=== PATIENT | male | born 1975 | race African-American/Black ===

== ENCOUNTER 2020-07-27 16:14 | Outpatient (REF) | payer MEDICAID, SELFPAY | END 2020-07-27 16:15 | disposition home or self-care (01) | LOC: HO.SCI 16:14 | PROVIDERS: Visit Provider Nurse Practitioner Primary Care | DX: Z13.89 Encounter for screening for other disorder (principal) ==

== ENCOUNTER 2020-08-03 06:57 | Outpatient (REF) | payer MEDICAID, SELFPAY ==
[2020-08-03 08:50] LABS: Estimated Average Glucose 97 mg/dL
[2020-08-03 09:55] LABS: Glucose Urine UA NEG (NEG); Leukocyte Esterase Urine NEG (NEG); Nitrite Urine NEG (NEG); Specific Gravity - Urine >= 1.030 (1.005-1.025); Urine Blood NEG (NEG); Urine Ketones NEG (NEG); Urine Protein NEG (NEG-TRACE)
[2020-08-03 10:07] LABS: Appearance Urine CLEAR; Color Urine YELLOW
[2020-08-03 12:10] LABS: CT PCR NOT DETECTED (Not Detect.); NG PCR NOT DETECTED (Not Detect.)
[2020-08-06 14:56] LABS: Absolute CD3 Count 2072 cells/uL (840-3060); Absolute CD4 Count 1184 cells/uL (490-1740); Absolute CD8 Count 876 cells/uL (180-1170); Absolute Lymphocytes 2581 cells/uL (850-3900); CD4 CD8 Ratio 1.35 (0.86-5.00); Percent CD3 Cells 80 % (57-85); Percent CD4 Cells 46 % (30-61); Percent CD8 Cells 34 % (12-42)
[2020-08-07 14:01] LABS: HCV Log PCR 4.55 Log IU/mL (NOT DETECTED); HepC Viral Load 35800 IU/mL (NOT DETECTED)
[2020-08-08 14:17] LABS: HIV RNA PCR Qn Copies <20 Copies/mL; HIV RNA PCR Qn Log Copies <1.30 Log cps/mL
== END 2020-08-03 06:58 | disposition home or self-care (01) ==
LOC: HO.LAB 06:57
PROVIDERS: PCP Nurse Practitioner Primary Care; Visit Provider Nurse Practitioner Primary Care
DX: B20 Human immunodeficiency virus [HIV] disease (principal)
CPT/HCPCS: 81003; 83036; 86359; 86360; 87491; 87522; 87536; 87591; 87900; 87901

== ENCOUNTER 2020-09-21 07:47 | Outpatient (REF) | payer MEDICAID, SELFPAY ==
--- NOTE | ~2020-09-21 | US_ITS ---
EXAMINATION: US COMPLETE ABDOMEN WITH LIVER ELASTOGRAPHY CLINICAL INFORMATION: Hepatitis C. COMPARISON: None. TECHNIQUE: Real-time imaging of the abdominal viscera. Noninvasive ultrasound liver fibrosis assessment is performed using Clarice ElastPQ point quantification shear wave elastography (pSWE) with a C5-2 MHz transducer. Multiple elastography samples are obtained. FINDINGS: PANCREAS: The head and body of the pancreas is normal. Tail is not well visualized due to bowel gas. ABDOMINAL AORTA: The proximal and distal abdominal aorta are normal in caliber. The mid abdominal aorta is not well visualized. INFERIOR VENA CAVA: Visualized portions are normal. LIVER: The liver echotexture is slightly increased. The liver is upper normal in size. No focal liver lesion or evidence of cirrhosis is seen. The right lobe measures 16.5 cm in length. The left lobe measures 10.8 cm in length. Portal flow is normal/hepatopedal. Shear wave liver elastography median stiffness is 1.9 m/s (reference: normal median stiffness is 1.3 m/s or less). IQR/median stiffness to assess sampling precision is 0.13 (reference: good quality data set is IQR/median stiffness of 0.15 or less). GALLBLADDER: Normal. The gallbladder is physiologically distended without evidence of stones, sludge, polyps, wall thickening or pericholecystic fluid. COMMON BILE DUCT: Normal in caliber measuring 0.2 cm in diameter. RIGHT KIDNEY: Normal. No hydronephrosis. No renal calculi or focal parenchymal lesions. The kidney measures 10.8 cm in maximum dimension. LEFT KIDNEY: Normal. No hydronephrosis. No renal calculi or focal parenchymal lesions. The kidney measures 12 cm in maximum dimension. SPLEEN: Normal. The spleen measures 10.7 cm in maximum dimension. FREE FLUID: There is trace fluid seen adjacent to the liver under the right hemidiaphragm. US/US abdomen comp w elastography IMPRESSION: 1. Slightly echogenic liver. No focal liver lesion or evidence of cirrhosis. Trace ascites. Limited visualization of the pancreas and aorta. 2. Liver elastography: Adequate liver sampling. Liver stiffness suggests possiblecompensated advanced chronic liver disease. REFERENCE: Society of Radiologists in Ultrasound Liver Stiffness Thresholds (2020): LIVER STIFFNESS THRESHOLDS: *Liver Stiffness equal or less than 1.3 m/s: High probability of being normal. *Liver Stiffness less than 1.7 m/s: In the absence of other known clinical signs, rules out compensated advanced chronic liver disease. *Liver Stiffness 1.7-2.1 m/s: Suggestive of compensated advanced chronic liver disease but need further test for confirmation. *Liver Stiffness over 2.1 m/s: Rules in compensated advanced chronic liver disease. *Liver Stiffness over 2.4 m/s: Suggestive of clinically significant portal hypertension. QUALITY OF DATA SET: *IQR/Median value equal or less than 0.15 implies a quality data set. *IQR/Median value over 0.15 implies a poor quality data set. SIGNIFICANT CHANGE FROM PRIOR EXAM: Significant change if liver stiffness measurement is 10% or greater from prior exam. OTHER CONSIDERATIONS: The stage of liver fibrosis may be overestimated in the setting of acute hepatitis, liver inflammation, elevated liver function tests, hepatic vascular congestion, obstructive cholestasis, non-fasting state, and infiltrative diseases such as amyloidosis and lymphoma. In some patients with NAFLD, the liver stiffness thresholds for compensated advanced chronic liver disease may be lower. In causes other than viral hepatitis and NAFLD, liver stiffness thresholds are not well established.
== END 2020-09-21 07:48 | disposition home or self-care (01) ==
LOC: HO.US 07:47
PROVIDERS: Visit Provider Internal Medicine
DX: B19.20 Unspecified viral hepatitis C without hepatic coma (principal)
CPT/HCPCS: 76705; 76981

== ENCOUNTER → 2020-09-28 07:49 | Outpatient (REF) | payer MEDICAID, SELFPAY ==
--- NOTE | 2020-09-28 07:53 | CA_ITS ---
Transthoracic Echocardiogram Patient (Last, First, Middle): [place] Alston, Gender: Male Date of : 1975 Age: 45 Procedure Date: 09/28/2020 Procedure Type: Transthoracic Echocardiogram Location: OP Height: 187.96 cm Weight: 74.84 kg BSA: 2.00 m2 Heart Rate: bpm BP: 98 / 62 mmHg Senior Water Resources Engineer: DSG Referring MD: Rebeca Chase NP Corporate Relations Director: Hima Lou MD Symptoms: ABNORMAL EKG R4.31 Study Quality: Good ECG Rhythm: Sinus Conclusions: - Essentially normal study Findings Left Ventricle Normal left ventricular size, thickness, and systolic function. The visually estimated ejection fraction is between 60-65%. Diastolic function is normal for age. Right Ventricle Normal right ventricular cavity size and systolic function. Atria Both atria are normal in size. There is no evidence of interatrial shunt. Aortic Valve Normal aortic valve structure and function. There is no aortic valve stenosis. There is no aortic valve regurgitation. Mitral Valve Normal mitral valve structure and function. There is trace mitral valve regurgitation. There is no mitral valve stenosis. Pulmonic Valve The pulmonic valve is likely normal. Tricuspid Valve Normal tricuspid valve structure. There is trace tricuspid valve regurgitation. The right ventricular systolic pressure is normal. The right ventricular systolic pressure is 25 mmHg. Normal right atrial pressure. There is no evidence of pulmonary hypertension. Great Vessels All visible segments of the aorta are normal in size. The pulmonary artery was not well visualized. Venous The inferior vena cava is normal in size and collapses greater than 50% with inspiration. Pericardium/Pleural There is no evidence of pericardial effusion. Prior Study Comparison No prior study available for comparison. Measurements 2D Linear Measurements IVSd: 1.34 0.6-0.9/0.6-1.0 cm LVIDd: 5.20 3.9-5.3/4.2-5.9 cm LVIDd Index: 2.60 2.4-3.2/2.2-3.1 cm/m2 LVIDs: 3.24 2.0-3.6 cm LVPWd: 0.75 0.7-1.1 cm Ao Root: 3.00 2.1-3.5 cm LA Diam: 3.00 2.7-3.8/3.0-4.0 cm LAIDs Index: 1.50 1.5-2.3 cm/m2 LV Mass: 256.68 67-162/88-224 g LV Mass Index: 128.34 43-95/49-115 g/m2 LVOT Diam: 2.40 3.0+(-)1.3 cm 2D Systolic Function EF 4C: 59.30 >55% EF 2C: 51.40 >55% Mitral Valve MV Pk E: 0.86 MV PK A: 0.31 MV Decel Time: 151.00 E/A: 2.80 PHT: 44.00 MVA PHT: 5.00 Decel [place]: 5.70 Aortic Valve AoV Pk Ant: 1.02 AoV Pk Grad: 4.00 LVOT LVOT Pk Ant: 0.91 LVOT Mn Ant: 0.54 LVOT VTI: 0.19 LVOT Pk Grad: 3.00 LVOT Mn Grad: 1.00 LVOT Diam: 2.40 LVOT Area: 4.52 Diastolic Function MV Pk E: 0.86 MV Pk A: 0.31 E/A: 2.80 Tricuspid Valve TR Pk Ant: 2.08 TR Pk Grad: 17.00 RA Press: 8.00 RVSP: 25.00 Great Vessels Aorta Ao Root-2D: 3.00 2.0-3.7 cm Ao Asc: 3.00 2.1-3.4 cm Updated in Other Vendor System with Status of Final Hima Lou MD electronically signed on 09/28/2020 4:09:30 PM with status of Final
== END ==
LOC: HO.CARD 07:49
PROVIDERS: Visit Provider Nurse Practitioner Primary Care
DX: R94.31 Abnormal electrocardiogram [ECG] [EKG] (principal)
CPT/HCPCS: 93306

== ENCOUNTER 2020-10-19 06:06 | Outpatient (REF) | payer MEDICAID, SELFPAY ==
[2020-10-19 07:47] LABS: INTERNATIONAL NORM RATIO 1.2 (0.9-1.1); Prothrombin Time 14.3 SEC (10.8-13.0)
[2020-10-24 10:17] LABS: Hepatitis C Genotype 1a
[2020-11-03 18:12] LABS: FIB-ALT 53 U/L (9-46); FIB-Alpha-2-Macroglobulin 368 mg/dL (106-279); FIB-Apolipoprotein A1 128 mg/dL (94-176); FIB-GGT 42 U/L (3-95); FIB-Haptoglobin 138 mg/dL (43-212); FIB-Total Bilirubin 0.6 mg/dL (0.2-1.2); Liver Fibrosis Score 0.57; Liver Fibrosis Stage F2; Nec Inflam Act Grade A1-A2
== END 2020-10-19 06:07 | disposition home or self-care (01) ==
LOC: HO.LAB 06:06
PROVIDERS: Absent Provider Nurse Practitioner Primary Care; PCP Nurse Practitioner Primary Care; Visit Provider Internal Medicine
DX: B19.20 Unspecified viral hepatitis C without hepatic coma (principal)
CPT/HCPCS: 36415; 81596; 85610; 87902

== ENCOUNTER → 2020-11-15 14:59 | Outpatient (BNVA) | payer MEDICAID, SELFPAY | PROVIDERS: PCP Nurse Practitioner Primary Care; Visit Provider Surgery Vascular Surgery | DX: I73.9 Peripheral vascular disease, unspecified (principal); I83.11 Varicose veins of right lower extremity with inflammation; B19.20 Unspecified viral hepatitis C without hepatic coma; B20 Human immunodeficiency virus [HIV] disease; F11.20 Opioid dependence, uncomplicated; F17.210 Nicotine dependence, cigarettes, uncomplicated | CPT/HCPCS: 99202 ==

== ENCOUNTER 2020-12-11 07:55 | Outpatient (REF) | payer MEDICAID, SELFPAY ==
--- NOTE | ~2020-12-11 | US_ITS ---
EXAMINATION: NONINVASIVE ASSESSMENT OF THE ARTERIES OF BOTH LOWER EXTREMITIES WITH ANKLE PRESSURE MEASUREMENTS, ANKLE BRACHIAL INDICES, PVR MEASUREMENTS AND BILATERAL LOWER EXTREMITY DUPLEX. CLINICAL INFORMATION: Peripheral vascular disease. TECHNIQUE: Ankle pressure measurements, ankle brachial indices and PVR tracings were obtained of the lower extremity arterial system bilaterally. In addition, duplex Doppler techniques with wave form analysis and measurement of velocities in the common femoral, profunda femoral, superficial femoral, popliteal and tibial arteries was performed. The study was performed only at rest. COMPARISON: None FINDINGS: NONINVASIVE ASSESSMENT OF THE ARTERIES OF BOTH LOWER EXTREMITIES WITH ABIs: RIGHT LEG: Right ankle-brachial index: 1.2 PVR (ankle): Abnormal waveform. LEFT LEG: Ankle-brachial index: 1.16 PVR (ankle): Abnormal waveform BILATERAL LOWER EXTREMITY DUPLEX ULTRASOUND: RIGHT LEG: Common femoral artery: 158 cm/s, Diastolic flow reversal: Yes Profunda femoris artery: 123 cm/s, Diastolic flow reversal: No Superficial femoral artery (proximal): 105 cm/s, Diastolic flow reversal: Yes Superficial femoral artery (mid): 153 cm/s, Diastolic flow reversal: Yes Superficial femoral artery (distal): 88 cm/s, Diastolic flow reversal: Yes Popliteal artery: 64 cm/s, Diastolic flow reversal: Yes Posterior tibial artery: 70 cm/s, Diastolic flow reversal: Yes LEFT LEG: Common femoral artery: 139 cm/s, Diastolic flow reversal: Yes Profunda femoris artery: 124 cm/s, Diastolic flow reversal: Yes Superficial femoral artery (proximal): 110 cm/s, Diastolic flow reversal: Yes Superficial femoral artery (mid): 140 cm/s, Diastolic flow reversal: Yes Superficial femoral artery (distal): 79 cm/s, Diastolic flow reversal: Yes Popliteal artery: 68 cm/s, Diastolic flow reversal: Yes Posterior tibial artery: 89 cm/s, Diastolic flow reversal: Yes US/US arterial duplex LE BI IMPRESSION: RIGHT LEG: KENNEY 1.2. No hemodynamically significant arterial stenoses identified. LEFT LEG: KENNEY 1.16. No hemodynamically significant arterial stenoses identified. KENNEY Reference: - >0.97-1.25 = normal - no significant arterial disease - 0.75-0.96 = mild peripheral arterial disease - 0.5-0.74 = moderate peripheral arterial disease - <0.50 = severe peripheral arterial disease
--- NOTE | ~2020-12-11 | US_ITS ---
EXAMINATION: RIGHT and LEFT LOWER EXTREMITY VENOUS ULTRASOUND (Reflux Exam) CLINICAL INDICATION: leg pain and varicose veins. COMPARISON: None. TECHNIQUE: Color flow triplex imaging and compression Doppler was performed to evaluate both the deep and the superficial systems bilaterally. To evaluate the superficial system, the examination was performed in the upright position. Color-flow Doppler ultrasound and compression ultrasound were utilized. In addition, maneuvers were utilized to demonstrate reflux. FINDINGS: 1. DEEP VENOUS ULTRASOUND OF THE RIGHT LOWER EXTREMITY: Respiratory variation, normal compression and augmented flow are noted in the right common femoral vein as well as the right popliteal vein and there is no evidence of deep venous thrombosis at these locations. There is no evidence of reflux in the deep system in either the common femoral vein or the popliteal vein. There is no evidence of a Ellis's cyst. 2. SUPERFICIAL ULTRASOUND WITH DOPPLER OF RIGHT LOWER EXTREMITY: The right great saphenous vein at the saphenofemoral junction measures 7 mm, at the mid thigh 3 mm, [id number] 3 mm, tozhl-lju-[id number] 2 mm, at mid calf 1 mm and at the ankle measures 3 mm. There is no reflux demonstrated in the right great saphenous vein. The right small saphenous vein measures 2-4 mm and shows no reflux. There are perforators in the thigh and calf that measure between 2 and 4 mm and do not demonstrate reflux. There are varicosities in the thigh that measure 3 and 4 mm and do not demonstrate reflux. There is a varicosity in the Catheter communicates with the lesser saphenous vein demonstrates 3.1 seconds reflux. 3. DEEP VENOUS ULTRASOUND OF THE LEFT LOWER EXTREMITY: Respiratory variation, normal compression and augmented flow are noted in the left common femoral vein as well as the left popliteal vein and there is no evidence of deep venous thrombosis at these locations. There is no evidence of reflux in the deep system in either the common femoral vein or the popliteal vein. . There is no evidence of a Ellis's cyst. 4. SUPERFICIAL ULTRASOUND WITH DOPPLER OF LEFT LOWER EXTREMITY: Left great saphenous vein at the saphenofemoral junction measures 5 mm, at the mid thigh 1 mm, dtvyq-[id number] 2 mm, zwkuc-kpm-qlge 4 mm, at mid calf 3 mm and at the ankle measures 3 mm. There is a 1.9 seconds reflux in the left greater saphenous vein below the knee. There is an accessory lateral greater saphenous vein that measures 2 to 3 mm and does not demonstrate reflux. The left small saphenous vein measures 1 mm and shows no reflux. There are perforators in the calf that measure 3 mm and do not demonstrate reflux. There are varicosities in the thigh and the catheter. Varicosity at the knee measures 5 mm with 1.7 second reflux and in the proximal calf measuring 4 mm with 1 7 second reflux. US/US venous duplex LE BI IMPRESSION: 1. No evidence of reflux or thrombus in the common femoral veins or popliteal veins bilaterally. 2. No right greater saphenous vein reflux. Left greater saphenous vein reflux below the knee measuring 1.9 seconds. Reflux seen in bilateral varicosities.
== END 2020-12-11 07:56 | disposition home or self-care (01) ==
LOC: HO.US 07:55
PROVIDERS: Visit Provider Surgery Vascular Surgery
DX: I83.893 Varicose veins of bilateral lower extremities with other complications (principal); I83.11 Varicose veins of right lower extremity with inflammation; I73.9 Peripheral vascular disease, unspecified
CPT/HCPCS: 93923; 93925; 93970

== ENCOUNTER → 2020-12-13 15:08 | Outpatient (BNVA) | payer MEDICAID, SELFPAY | PROVIDERS: PCP Nurse Practitioner Primary Care; Referring Provider Nurse Practitioner Primary Care; Visit Provider Surgery Vascular Surgery | DX: I73.9 Peripheral vascular disease, unspecified (principal) | CPT/HCPCS: 99212 ==

== ENCOUNTER 2020-12-20 08:05 | Outpatient (REF) | payer MEDICAID, SELFPAY ==
[2020-12-21 12:36] LABS: Absolute CD3 Count 1956 cells/uL (840-3060); Absolute CD4 Count 993 cells/uL (490-1740); Absolute CD8 Count 942 cells/uL (180-1170); Absolute Lymphocytes 2659 cells/uL (850-3900); CD4 CD8 Ratio 1.05 (0.86-5.00); Percent CD3 Cells 74 % (57-85); Percent CD4 Cells 37 % (30-61); Percent CD8 Cells 35 % (12-42)
[2020-12-22 11:22] LABS: HIV RNA PCR Qn Copies <20 NOT DETECTED copies/mL (NOT DETECTED); HIV RNA PCR Qn Log Copies <1.30 NOT DETECTED (NOT DETECTED)
== END 2020-12-20 08:06 | disposition home or self-care (01) ==
LOC: HO.LAB 08:05
PROVIDERS: Absent Provider Nurse Practitioner Primary Care; PCP Nurse Practitioner Primary Care; Visit Provider Internal Medicine
DX: B20 Human immunodeficiency virus [HIV] disease (principal)
CPT/HCPCS: 36415; 86359; 86360; 87536

== ENCOUNTER 2021-03-08 08:18 | Outpatient (REF) | payer MEDICAID, SELFPAY ==
[2021-03-08 08:30] LABS: MANUAL DIFF FLAG NO
[2021-03-08 08:51] LABS: Basophils Percent Auto 0.2 % (0-2); Eosinophils Absolute Auto 0.1 X10*3/uL (0.0-0.4); Eosinophils Percent Auto 2.5 % (0-4); Hematocrit 35.9 % (42-52); Hemoglobin 12.2 g/dl (14.0-18.0); Imm Gran Abs Auto 0.01 X10*3/uL (0.00-0.03); Imm Gran Pct Auto 0.2 % (0.0-0.4); Lymphocytes Absolute Auto 3.2 X10*3/uL (1.2-4.9); Lymphocytes Percent Auto 56.6 % (20-40); Mean Corpuscular Volume 91.3 fL (80-98); Mean Platelet Volume 10.1 fL (9.4-12.4); Monocytes Absolute Auto 0.5 X10*3/uL (0.1-1.2); Monocytes Percent Auto 8.3 % (2-11); Neutrophils Absolute Auto 1.8 X10*3/uL (2.0-8.3); Neutrophils Percent Auto 32.2 % (45-73); Platelet Count 127 X10*3/uL (160-400); Red Blood Count 3.93 X10*6/uL (4.60-5.80); White Blood Count 5.6 X10*3/uL (4.8-10.8)
[2021-03-08 09:26] LABS: Alanine Aminotransferase 57 U/L (0-40); Albumin Level 3.7 g/dL (3.5-5.0); Alkaline Phosphatase 90 U/L (39-117); Anion Gap 9 (12-20); Aspartate Amino Transferase 54 U/L (5-37); Bilirubin Total 0.4 mg/dL (0.0-1.0); Blood Urea Nitrogen 13 mg/dL (9-16); Calcium 8.8 mg/dL (8.4-10.2); Carbon Dioxide 29 mmol/L (22-29); Chloride 104 mmol/L (96-108); Cholesterol 101 mg/dL; Estimated Glomerular Filt Rate > 60; Glucose Random 87 mg/dL (60-115); HDL Cholesterol 39 mg/dL; LDL Cholesterol Calculated 54 mg/dl; Potassium 4.6 mmol/L (3.3-5.1); Sodium 137 mmol/L (135-145); Total Protein 8.6 g/dL (6.5-8.0); Triglycerides 44 mg/dL
[2021-03-08 09:49] LABS: Syphilis Screen Nonreactive (Nonreactive)
[2021-03-08 09:58] LABS: Appearance Urine CLEAR; Color Urine YELLOW; Glucose Urine UA NEG (NEG); Leukocyte Esterase Urine NEG (NEG); Nitrite Urine NEG (NEG); Specific Gravity - Urine >= 1.030 (1.005-1.025); Urine Blood NEG (NEG); Urine Ketones NEG (NEG); Urine Protein NEG (NEG-TRACE)
[2021-03-08 12:57] LABS: CT PCR NOT DETECTED (Not Detect.); NG PCR NOT DETECTED (Not Detect.)
[2021-03-11 13:41] LABS: TS Negative Control Passed; TS Panel A 0; TS Panel B 0; TS Positive Control Passed; TSpotTB Negative (Negative)
[2021-03-11 14:51] LABS: Absolute CD3 Count 2286 cells/uL (840-3060); Absolute CD4 Count 1401 cells/uL (490-1740); Absolute CD8 Count 896 cells/uL (180-1170); Absolute Lymphocytes 3159 cells/uL (850-3900); CD4 CD8 Ratio 1.56 (0.86-5.00); Percent CD3 Cells 72 % (57-85); Percent CD4 Cells 44 % (30-61); Percent CD8 Cells 28 % (12-42)
[2021-03-12 15:46] LABS: HIV RNA PCR Qn Copies <20 NOT DETECTED copies/mL (NOT DETECTED); HIV RNA PCR Qn Log Copies <1.30 NOT DETECTED (NOT DETECTED)
== END 2021-03-08 08:19 | disposition home or self-care (01) ==
LOC: HO.LAB 08:18
PROVIDERS: Absent Provider Nurse Practitioner Primary Care; PCP Nurse Practitioner Primary Care; Visit Provider Internal Medicine
DX: B20 Human immunodeficiency virus [HIV] disease (principal)
CPT/HCPCS: 80053; 80061; 81003; 85025; 86359; 86360; 86481; 86780; 87491; 87536; 87591

== ENCOUNTER 2021-04-12 06:40 | Outpatient (REF) | payer MEDICAID, SELFPAY ==
[2021-04-12 08:07] LABS: Hepatitis A Antibody IgG REACTIVE (Nonreactive); ~Hepatitis A Antibody IgG 10.71 S/CO (0.00-0.99)
[2021-04-18 15:32] LABS: HCV Log PCR 5.15 Log IU/mL (NOT DETECTED); HepC Viral Load 141000 IU/mL (NOT DETECTED)
== END 2021-04-12 06:41 | disposition home or self-care (01) ==
LOC: HO.LAB 06:40
PROVIDERS: Absent Provider Nurse Practitioner Primary Care; PCP Nurse Practitioner Primary Care; Visit Provider Internal Medicine
DX: B19.20 Unspecified viral hepatitis C without hepatic coma (principal)
CPT/HCPCS: 36415; 86708; 87522

== ENCOUNTER 2021-07-26 11:49 | Outpatient (REF) | payer MEDICAID, SELFPAY ==
[2021-07-26 12:29] LABS: MANUAL DIFF FLAG NO
[2021-07-26 13:10] LABS: Basophils Percent Auto 0.3 % (0-2); Eosinophils Absolute Auto 0.1 X10*3/uL (0.0-0.4); Eosinophils Percent Auto 1.1 % (0-4); Hematocrit 39.4 % (42.0-52.0); Hemoglobin 13.1 g/dl (14.0-18.0); Imm Gran Abs Auto 0.02 X10*3/uL (0.00-0.03); Imm Gran Pct Auto 0.3 % (0.0-0.4); Lymphocytes Absolute Auto 2.6 X10*3/uL (1.2-4.9); Lymphocytes Percent Auto 40.6 % (20-40); Mean Corpuscular HGB Conc 33.2 g/dl (31.0-36.0); Mean Corpuscular Hemoglobin 31.2 pg (27.0-33.0); Mean Corpuscular Volume 93.8 fL (80.0-98.0); Mean Platelet Volume 9.9 fL (9.4-12.4); Monocytes Absolute Auto 0.4 X10*3/uL (0.1-1.2); Monocytes Percent Auto 6.7 % (2-11); Neutrophils Absolute Auto 3.3 x10*3/uL (2.0-8.3); Platelet Count 148 X10*3/uL (160-400); White Blood Count 6.4 X10*3/uL (4.8-10.8)
[2021-07-26 13:48] LABS: Alanine Aminotransferase 12 U/L (0-40); Alkaline Phosphatase 83 U/L (39-117); Aspartate Amino Transferase 23 U/L (5-37); Bilirubin Direct 0.3 mg/dL (0.0-0.5); Bilirubin Total 0.9 mg/dL (0.0-1.0); Total Protein 8.5 g/dL (6.5-8.0)
[2021-07-28 13:22] LABS: HCV Log PCR <1.18 NOT DETECTED Log IU/mL (NOT DETECTED); HepC Viral Load <15 NOT DETECTED IU/mL (NOT DETECTED)
[2021-07-29 11:42] LABS: Absolute CD3 Count 1876 cells/uL (840-3060); Absolute CD4 Count 1097 cells/uL (490-1740); Absolute CD8 Count 778 cells/uL (180-1170); Absolute Lymphocytes 2667 cells/uL (850-3900); CD4 CD8 Ratio 1.41 (0.86-5.00); Percent CD3 Cells 70 % (57-85); Percent CD4 Cells 41 % (30-61); Percent CD8 Cells 29 % (12-42)
[2021-07-30 20:31] LABS: HIV RNA PCR Qn Copies NOT DETECTED copies/mL (NOT DETECTED); HIV RNA PCR Qn Log Copies NOT DETECTED (NOT DETECTED)
== END 2021-07-26 11:50 | disposition home or self-care (01) ==
LOC: HO.LAB 11:49
PROVIDERS: Absent Provider Nurse Practitioner Primary Care; PCP Nurse Practitioner Primary Care; Visit Provider Internal Medicine
DX: B19.20 Unspecified viral hepatitis C without hepatic coma (principal); B20 Human immunodeficiency virus [HIV] disease
CPT/HCPCS: 36415; 80076; 85025; 86359; 86360; 87522; 87536

== ENCOUNTER 2021-12-04 08:18 | Outpatient (REF) | payer MEDICAID, SELFPAY ==
[2021-12-04 10:13] LABS: Alanine Aminotransferase 11 U/L (0-40); Albumin Level 3.9 g/dL (3.5-5.0); Alkaline Phosphatase 96 U/L (39-117); Aspartate Amino Transferase 21 U/L (5-37); Bilirubin Direct 0.2 mg/dL (0.0-0.5); Bilirubin Total 0.4 mg/dL (0.0-1.0); Total Protein 7.9 g/dL (6.5-8.0)
[2021-12-08 18:06] LABS: HCV Log PCR <1.18 NOT DETECTED Log IU/mL (NOT DETECTED); HepC Viral Load <15 NOT DETECTED IU/mL (NOT DETECTED)
== END 2021-12-04 08:19 | disposition home or self-care (01) ==
LOC: HO.LAB 08:18
PROVIDERS: PCP Nurse Practitioner Primary Care; Visit Provider Internal Medicine
DX: B19.20 Unspecified viral hepatitis C without hepatic coma (principal)
CPT/HCPCS: 36415; 80076; 87522

== ENCOUNTER 2022-03-05 | Outpatient (REF) | payer MEDICAID, SELFPAY | END 2022-03-05 00:01 | disposition home or self-care (01) | LOC: HO.HOSX | PROVIDERS: Visit Provider Physician Assistant | DX: Z13.89 Encounter for screening for other disorder (principal) ==

== ENCOUNTER 2022-03-21 11:30 | Outpatient (REF) | payer MEDICAID, SELFPAY ==
[2022-03-21 12:21] LABS: Appearance Urine Clear; Color Urine Yellow; Glucose Urine UA Negative (Negative); Leukocyte Esterase Urine Negative (Negative); Nitrite Urine Negative (Negative); PH 5.5 (5.0-9.0); Specific Gravity - Urine 1.025 (1.005-1.025); Urine Blood Negative (Negative); Urine Ketones Negative (Negative); Urine Protein Negative (Neg-Trace)
[2022-03-21 12:22] LABS: Basophils Percent Auto 0.3 % (0-2); Eosinophils Absolute Auto 0.1 X10*3/uL (0.0-0.4); Eosinophils Percent Auto 1.9 % (0-4); Hemoglobin 14.1 g/dl (14.0-18.0); Imm Gran Abs Auto 0.01 X10*3/uL (0.00-0.03); Imm Gran Pct Auto 0.1 % (0.0-0.4); Lymphocytes Percent Auto 39.4 % (20-40); MANUAL DIFF FLAG SCAN; Mean Corpuscular HGB Conc 33.6 g/dl (31.0-36.0); Mean Corpuscular Volume 92.3 fL (80.0-98.0); Monocytes Absolute Auto 0.5 X10*3/uL (0.1-1.2); Monocytes Percent Auto 6.8 % (2-11); Neutrophils Absolute Auto 3.9 x10*3/uL (2.0-8.3); Neutrophils Percent Auto 51.5 % (45-73); PLT CLUMP 1; Red Blood Count 4.55 X10*6/uL (4.60-5.80); Red Cell Distribution Width 12.8 % (11.0-16.0); SCAN SMEAR FLAG 1
[2022-03-21 12:23] LABS: Bacteria Urine None Seen (None Seen); Hyaline Casts Urine 0-2 /LPF (0-2); RBC Urine 0-2 /HPF (0-2); Squamous Epithelial Cell Urine 0-2 /HPF (0-2); WBC Urine 0-5 /HPF (0-5)
[2022-03-21 12:38] LABS: White Blood Count 7.5 X10*3/uL (4.8-10.8)
[2022-03-21 12:39] LABS: SLIDE REVIEW VERIFIED
[2022-03-21 13:01] LABS: Alanine Aminotransferase 12 U/L (0-40); Albumin Level 4.3 g/dL (3.5-5.0); Alkaline Phosphatase 87 U/L (39-117); Anion Gap 15 (12-20); Aspartate Amino Transferase 23 U/L (5-37); Bilirubin Total 0.6 mg/dL (0.0-1.0); Blood Urea Nitrogen 14 mg/dL (9-16); Calcium 9.3 mg/dL (8.4-10.2); Carbon Dioxide 24 mmol/L (22-29); Chloride 104 mmol/L (96-108); Cholesterol 146 mg/dL; Estimated Glomerular Filt Rate > 60; Glucose Random 97 mg/dL (60-115); HDL Cholesterol 51 mg/dL; LDL Cholesterol Calculated 86 mg/dl; Potassium 4.6 mmol/L (3.3-5.1); Sodium 138 mmol/L (135-145); Total Protein 8.5 g/dL (6.5-8.0); Triglycerides 45 mg/dL
[2022-03-21 13:11] LABS: Syphilis Screen Nonreactive (Nonreactive)
[2022-03-24 13:17] LABS: Absolute CD3 Count 1966 cells/uL (840-3060); Absolute CD4 Count 1186 cells/uL (490-1740); Absolute CD8 Count 790 cells/uL (180-1170); Absolute Lymphocytes 2696 cells/uL (850-3900); Percent CD3 Cells 73 % (57-85); Percent CD4 Cells 44 % (30-61); Percent CD8 Cells 29 % (12-42)
[2022-03-25 20:27] LABS: HIV RNA PCR Qn Copies NOT DETECTED copies/mL (NOT DETECTED); HIV RNA PCR Qn Log Copies NOT DETECTED (NOT DETECTED)
== END 2022-03-21 11:31 | disposition home or self-care (01) ==
LOC: HO.LAB 11:30
PROVIDERS: Visit Provider Nurse Practitioner Primary Care
DX: B20 Human immunodeficiency virus [HIV] disease (principal)
CPT/HCPCS: 36415; 80053; 80061; 81001; 85025; 86359; 86360; 86780; 87536

== ENCOUNTER 2022-03-24 11:03 | Outpatient (REF) | payer MEDICAID, SELFPAY ==
--- NOTE | ~2022-03-24 | XR_ITS ---
EXAMINATION: XR HAND, RIGHT CLINICAL INFORMATION: Pain right and COMPARISON: None TECHNIQUE: PA, lateral, and oblique views of the right hand. FINDINGS: The bones and soft tissues are normal. No fracture. Alignment is anatomic. Joint spaces are maintained. No erosions or soft tissue calcifications. XR/XR hand RT min 3V IMPRESSION: Unremarkable right hand exam.
[2022-03-26 15:57] LABS: TS Negative Control Passed; TS Panel A 0; TS Panel B 0; TS Positive Control Passed; TSpotTB Negative (Negative)
== END 2022-03-24 11:04 | disposition home or self-care (01) ==
LOC: HO.LAB 11:03
PROVIDERS: Internal Medicine; Absent Provider Nurse Practitioner Primary Care; Visit Provider Physician Assistant
DX: M79.641 Pain in right hand (principal); B20 Human immunodeficiency virus [HIV] disease
CPT/HCPCS: 36415; 73130; 86481

== ENCOUNTER 2022-07-02 08:28 | Outpatient (REF) | payer MEDICAID, SELFPAY ==
--- NOTE | ~2022-07-02 | XR_ITS ---
EXAMINATION: XR LUMBOSACRAL SPINE CLINICAL INFORMATION: Low back pain COMPARISON: None TECHNIQUE: Three views of the lumbosacral spine. FINDINGS: Bone alignment is normal. No fracture or dislocation. Mild disc space narrowing at L4-L5 and L5-S1. Lower lumbar spine facet arthritis and spondylosis. XR/XR lumbar spine 2-3V IMPRESSION: Degenerative changes.
== END 2022-07-02 08:29 | disposition home or self-care (01) ==
LOC: HO.XRAY 08:28
PROVIDERS: PCP Family Medicine; Visit Provider Emergency Medicine
DX: M54.50 Low back pain, unspecified (principal); M79.605 Pain in left leg
CPT/HCPCS: 72100

== ENCOUNTER 2022-10-23 12:35 | Outpatient (REF) | payer MEDICAID, SELFPAY ==
[2022-10-23 13:01] LABS: MANUAL DIFF FLAG NO
[2022-10-23 14:18] LABS: Basophils Percent Auto 0.5 % (0-2); Eosinophils Absolute Auto 0.2 X10*3/uL (0.0-0.4); Eosinophils Percent Auto 3.5 % (0-4); Hematocrit 42.9 % (42.0-52.0); Hemoglobin 14.2 g/dl (14.0-18.0); Imm Gran Abs Auto 0.01 X10*3/uL (0.00-0.03); Imm Gran Pct Auto 0.2 % (0.0-0.4); Lymphocytes Absolute Auto 2.6 X10*3/uL (1.2-4.9); Lymphocytes Percent Auto 39.5 % (20-40); Mean Corpuscular HGB Conc 33.1 g/dl (31.0-36.0); Mean Corpuscular Hemoglobin 30.9 pg (27.0-33.0); Mean Corpuscular Volume 93.3 fL (80.0-98.0); Monocytes Absolute Auto 0.5 X10*3/uL (0.1-1.2); Neutrophils Absolute Auto 3.3 x10*3/uL (2.0-8.3); Neutrophils Percent Auto 49.3 % (45-73); Platelet Count 186 X10*3/uL (160-400); White Blood Count 6.6 X10*3/uL (4.8-10.8)
[2022-10-23 14:51] LABS: Alanine Aminotransferase 15 U/L (0-40); Albumin Level 3.9 g/dL (3.5-5.0); Alkaline Phosphatase 86 U/L (39-117); Anion Gap 13 (12-20); Aspartate Amino Transferase 21 U/L (5-37); Bilirubin Total 0.7 mg/dL (0.0-1.0); Blood Urea Nitrogen 8 mg/dL (9-16); Calcium 9.7 mg/dL (8.4-10.2); Carbon Dioxide 29 mmol/L (22-29); Chloride 104 mmol/L (96-108); Cholesterol 155 mg/dL; Estimated Glomerular Filt Rate > 60; Glucose Random 96 mg/dL (60-115); HDL Cholesterol 61 mg/dL; LDL Cholesterol Calculated 85 mg/dl; Potassium 4.8 mmol/L (3.3-5.1); Sodium 141 mmol/L (135-145); Triglycerides 49 mg/dL
[2022-10-24 11:09] LABS: Absolute CD3 Count 1750 cells/uL (840-3060); Absolute CD4 Count 1009 cells/uL (490-1740); Absolute CD8 Count 738 cells/uL (180-1170); Absolute Lymphocytes 2390 cells/uL (850-3900); CD4 CD8 Ratio 1.37 (0.86-5.00); Percent CD3 Cells 73 % (57-85); Percent CD4 Cells 42 % (30-61); Percent CD8 Cells 31 % (12-42)
[2022-10-25 10:00] LABS: LDL Cholesterol Direct 79 mg/dL (<100)
[2022-10-27 13:59] LABS: HCV Log PCR <1.18 NOT DETECTED Log IU/mL (NOT DETECTED); HepC Viral Load <15 NOT DETECTED IU/mL (NOT DETECTED)
[2022-10-28 14:04] LABS: HIV RNA PCR Qn Copies 30 copies/mL (NOT DETECTED); HIV RNA PCR Qn Log Copies 1.48 (NOT DETECTED)
== END 2022-10-23 12:36 | disposition home or self-care (01) ==
LOC: HO.LAB 12:35
PROVIDERS: Absent Provider Nurse Practitioner Primary Care; PCP Nurse Practitioner Primary Care; Visit Provider Internal Medicine
DX: B20 Human immunodeficiency virus [HIV] disease (principal)
CPT/HCPCS: 36415; 80053; 80061; 83721; 85025; 86359; 86360; 87522; 87536

== ENCOUNTER 2022-10-28 12:31 | Emergency (ER) | payer MEDICAID, SELFPAY ==
[2022-10-28 12:58] VITALS: BP 105/66; PULSE 79; RESP 18; TEMP 36.4; O2SAT 97; BMI 21.9
--- NOTE | 2022-10-28 13:02 | ED.GENADULT ---
HPI - General Adult General Chief complaint: Back Pain/Injury Stated complaint: lower back pain Time Seen by Provider: 10/28/22 13:01 Source: patient, family, RN notes reviewed and old records reviewed Mode of arrival: ambulatory Limitations: no limitations History of Present Illness HPI narrative: 47-year-old male presents for evaluation of lower back pain. He reports that he has a history of sciatica He has had ongoing lower back pain for last 2 months. His pain got much worse last night. His pain is 10/10 and does not radiate. He is in the process of waiting for an MRI as an outpatient from his chiropractor Denies any recent injury Denies any weakness, on or bowel incontinence Related Data Home Medications Medication Instructions Recorded Confirmed abacavir 600 mg-dolutegravir 50 1 tab PO DAILY 11/15/20 mg-lamivudine 300 mg tablet (Triumeq) buprenorphine 12 mg-naloxone 3 mg 2 film buccal DAILY 11/15/20 sublingual film (Suboxone) emollient combination no.114 appl topical 11/15/20 (Eucerin Advanced Repair topical cream) famotidine 20 mg tablet 20 mg PO BID 11/15/20 gabapentin 300 mg capsule 300 mg PO QID 11/15/20 multivitamin 1 tab PO DAILY 11/15/20 Previous Rx's Medication Instructions Recorded dexamethasone 4 mg tablet 4 mg PO BID #6 tabs 10/28/22 methocarbamol 500 mg tablet 500 mg PO TID PRN muscle pain #15 10/28/22 tabs tramadol 50 mg tablet 50 mg PO Q6H PRN severe pain 10/28/22 (scale score 7-10) #12 tabs Allergies Allergy/AdvReac Type Severity Reaction Status Date / Time lodine Allergy Unknown Uncoded 10/28/22 13:00 Review of Systems Constitutional: Constitutional: Reports as per HPI, Denies chills, Denies fatigue and Denies fever(s) Cardiovascular: Cardiovascular: Denies chest pain and Denies dyspnea Respiratory: Respiratory: Denies cough and Denies dyspnea Genitourinary: Genitourinary: Denies difficulty urinating and Denies dysuria Musculoskeletal: Musculoskeletal: Reports back pain Neurologic: Denies focal weakness Endocrine: Endocrine: Denies fatigue [facility] Past Medical History Medical History Hepatitis C HIV (human immunodeficiency virus infection) Opioid dependence Social History Social History Patient Tobacco Use Status: Current everyday Tobacco user Tobacco use type: Cigarette Cigarette Packs Per Day: 0.5 Physical Exam ED Vital Signs: Vital Signs - 24 hr 10/28/22 12:58 Temperature 97.6 F Pulse Rate 79 Respiratory Rate 18 Blood Pressure 105/66 Pulse Oximetry 97 Oxygen Delivery Method Room Air BMI result Body Mass Index 21.9 Const General: healthy appearing, comfortable, no acute distress, alert and awake Nutritional Appearance: well nourished Orientation/consciousness: patient oriented x3 HENMT Head: Yes normocephalic and Yes atraumatic Eyes Eyelids: Yes eyelids normal Conjunctivae: conjunctivae normal Sclerae: sclerae normal Corneas: corneas normal Pupils: Equal, round and reactive pupils present EOM: EOMs intact bilaterally Neck Neck: Yes full ROM Resp Effort & Inspection: normal respiratory effort, able to speak in complete sentences, audible wheezes and not labored Back/Spine/Pelvis Other: Patient has vague tenderness the lumbar paraspinous region, no vertebral tenderness, no step-off deformities. Straight leg raise negative bilateral Skin General skin exam: no rashes or lesions noted and elasticity normal Neuro General: patient oriented x3 Cranial nerves: Yes CN's II-XII intact bilaterally, Yes Equal, round and reactive pupils present and Yes Bilaterally intact EOM present Cognition (Neuro): normal cognition Extrem Other: Moving all extremities well without any obvious deformities Medical Decision Making Medical Decision Making MDM Narrative: Patient has acute on chronic lower back pain. No specific injury, no warning signs for chronic venous syndrome, no fever or IV drug abuse to suggest infectious process. Will treat as sciatica. He will follow up for his outpatient MRI Differential Diagnosis Acute on chronic lower back pain Radiculopathy Sciatica Disc herniation Discharge Plan Discharge Clinical Impression: Sciatica Patient Disposition: Home, Self-Care Instructions: Sciatica (ED) Additional Instructions: Use ibuprofen Tylenol as needed for pain. You may use tramadol for more severe breakthrough pain. This may make you sleepy, did not drink alcohol or drive after taking You may use methocarbamol as needed for muscle spasms. This may make you sleepy as well, did not drink alcohol or drive after taking Take dexamethasone twice daily for the next 3 days Continue to follow-up with her outpatient providers for your MRI Prescriptions: New dexamethasone 4 mg tablet 4 mg PO BID Qty: 6 0RF methocarbamol 500 mg tablet 500 mg PO TID PRN (Reason: muscle pain) Qty: 15 0RF tramadol 50 mg tablet 50 mg PO Q6H PRN (Reason: severe pain (scale score 7-10)) Qty: 12 0RF
== END 2022-10-28 13:20 | disposition home or self-care (01) ==
PROVIDERS: Emergency Provider Emergency Medicine
DX: M54.42 Lumbago with sciatica, left side (principal); M54.41 Lumbago with sciatica, right side
CPT/HCPCS: 99282; 99283

== ENCOUNTER 2022-11-04 17:13 | Outpatient (REF) | payer MEDICAID, SELFPAY ==
--- NOTE | ~2022-11-04 | MR_ITS ---
EXAMINATION: MR LUMBAR SPINE WITHOUT AND WITH CONTRAST CLINICAL INFORMATION: severe low back pain radiating to left leg. COMPARISON: None available. TECHNIQUE: MRI of the lumbar spine was obtained using routine sequences with and without contrast. Intravenous contrast: Gadavist 7.5 mL FINDINGS: Motion degraded examination. Lumbar straightening. No significant spondylolisthesis. No suspicious marrow signal or focal osseous lesion. There is exuberant endplate marrow edema and enhancement at L5-S1. The vertebral body heights are maintained. Disc desiccation and height loss from L3-L4 to L5-S1. The conus medullaris terminates at the level of T12-L1. The distal spinal cord is normal in appearance. The cauda equina nerve roots appear normal. No definite abnormal intradural enhancement within the limitations of motion artifact No significant abnormalities of the paraspinal musculature. Limited evaluation of the intra-abdominal structures without significant abnormalities. The abdominal aorta is of normal contour and caliber. SPINAL LEVELS: L1-L2: Shallow disc bulge. Mild bilateral neural foraminal narrowing. No significant central spinal canal stenosis. L2-L3: Shallow disc bulge and mild facet arthropathy. No significant central spinal canal stenosis. Mild to moderate bilateral neural foraminal narrowing. L3-L4: Shallow disc bulge and mild facet arthropathy. No significant central spinal canal stenosis. Mild to moderate bilateral neural foraminal narrowing. L4-L5: Broad-based disc bulge and mild to moderate facet arthropathy. No significant central spinal canal stenosis. Moderate bilateral neural foraminal narrowing. No significant spinal canal stenosis. L5-S1: Mild facet arthropathy. Large left eccentric disc extrusion with peripheral enhancement effaces the subarticular zone and compresses the traversing S1 nerve roots as well as results in moderate left eccentric central spinal canal stenosis. Moderate bilateral neural foraminal narrowing. MR/MR lumbar spine wo/w con IMPRESSION: Motion degraded examination. 1. At L5-S1, there is a large left eccentric disc extrusion which effaces the subarticular zone and compresses the traversing S1 nerve roots as well as results in moderate left eccentric central spinal canal stenosis. There is exuberant endplate marrow edema and enhancement at this level. 2. Additional multilevel degenerative changes of the lumbar spine as described above without significant central spinal canal stenosis or high-grade neural foraminal narrowing.
== END 2022-11-04 17:14 | disposition home or self-care (01) ==
LOC: HO.MRI 17:13
PROVIDERS: Visit Provider Nurse Practitioner Primary Care
DX: M54.50 Low back pain, unspecified (principal); M79.605 Pain in left leg
CPT/HCPCS: 72158; A9585

== ENCOUNTER 2022-12-01 10:51 | Outpatient (AMB) | payer MEDICAID, SELFPAY ==
--- NOTE | 2022-12-01 10:56 | MHC.OFFVIS ---
Intake Vital Signs 12/01/22 10:57 Height 6 ft 1 in Weight 173 lb BMI 22.8 BP 119/70 Blood Pressure Location Lt brachial Position Sitting Respiration 14 Pulse 94 Pulse Source Pulse Oximeter Pulse Oximetry (%) 97 Oxygen Delivery Method Room Air Intake Visit Reasons: Spinal Stenosis, Lumbar/Lumbar Disc Herniation General Road Production Manager Required: Yes General Road Production Manager Name: Mary Lou [id number] Allergies lodine Allergy (Uncoded 12/01/22 10:59) Unknown Medication List - Last Reconciled 12/01/22 by Evy Brown LPN [id number] 600-50-300 mg (Triumeq) 1 tab PO DAILY buprenorphine-naloxone 12-3 mg (Suboxone) 2 film buccal DAILY dexamethasone 4 mg PO BID emollient combination no.114 (Eucerin Advanced Repair topical cream) appl topical famotidine 20 mg PO BID gabapentin 300 mg PO QID methocarbamol 500 mg PO TID PRN multivitamin 1 tab PO DAILY tramadol 50 mg PO Q6H PRN HPI Spinal Stenosis, Lumbar/Lumbar Disc Herniation HPI Details 47-year-old male presenting today as a new patient evaluation of spinal stenosis and lumbar disc herniation. A certified cook italian style food was present during the visit. The patient was referred by JANEL Palacios. He has a past medical history that includes being HIV positive, HCV-treated, OUD, now on OBAT/suboxone, PAD, and smoking, in addition to a remote history of cocaine use. He is unable to work due to weakness in his leg and severe back pain that radiates to his leg. He also has numbness in his right arm. He reports that he has a history of sciatica. He reports ongoing lower back pain for the last six months. He rates his pain at 10/10 in intensity. His pain does not radiate. He reports foot pain that also started about six months ago. He has not seen a target worker for foot pain. The patient denies any recent injury. The patient denies any weakness or bowel incontinence. 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 ON LICENSE OF [facility] Medical History (Updated 12/01/22 @ 11:07 by Rick De La Garza MD) Hepatitis C HIV (human immunodeficiency virus infection) Lumbar disc herniation Opioid dependence Spinal stenosis of lumbar region with neurogenic claudication Spinal stenosis, lumbosacral region Social History Patient Tobacco Use Status: Current everyday Tobacco user Tobacco use type: Cigarette Cigarette Packs Per Day: 0.5 Review of Systems Const All systems reviewed & are unremarkable except as noted in HPI and below Physical Exam Vital Signs: Last Vital Signs Pulse 94 12/01/22 10:57 Resp 14 12/01/22 10:57 BP 119/70 12/01/22 10:57 Pulse Ox 97 12/01/22 10:57 Oxygen Delivery Method Room Air 12/01/22 10:57 BMI result Body Mass Index 22.8 General: Appears afebrile. Alert and oriented. Mood and affect appropriate. Follows and participates in conversation appropriately. Respiratory effort is unlabored. Able to transition from sit to stand unassisted. Ambulates with bilaterally normal heel strike and toe off. Able to stand on toes and heels with difficulty. Results Reviewed Results Reviewed: 11/04/22: MR LUMBAR SPINE WITHOUT AND WITH CONTRAST FINDINGS: Lumbar straightening. No significant spondylolisthesis. No suspicious marrow signal or focal osseous lesion. There is exuberant endplate marrow edema and enhancement at L5-S1. The vertebral body heights are maintained. Disc desiccation and height loss from L3-L4 to L5-S1. The conus medullaris terminates at the level of T12-L1. The distal spinal cord is normal in appearance. The cauda equina nerve roots appear normal. No definite abnormal intradural enhancement within the limitations of motion artifact No significant abnormalities of the paraspinal musculature. Limited evaluation of the intra-abdominal structures without significant abnormalities. The abdominal aorta is of normal contour and caliber. SPINAL LEVELS: L1-L2: Shallow disc bulge. Mild bilateral neural foraminal narrowing. No significant central spinal canal stenosis. L2-L3: Shallow disc bulge and mild facet arthropathy. No significant central spinal canal stenosis. Mild to moderate bilateral neural foraminal narrowing. L3-L4: Shallow disc bulge and mild facet arthropathy. No significant central spinal canal stenosis. Mild to moderate bilateral neural foraminal narrowing. L4-L5: Broad-based disc bulge and mild to moderate facet arthropathy. No significant central spinal canal stenosis. Moderate bilateral neural foraminal narrowing. No significant spinal canal stenosis. L5-S1: Mild facet arthropathy. Large left eccentric disc extrusion with peripheral enhancement effaces the subarticular zone and compresses the traversing S1 nerve roots as well as results in moderate left eccentric central spinal canal stenosis. Moderate bilateral neural foraminal narrowing. IMPRESSION: Motion degraded examination. 1. At L5-S1, there is a large left eccentric disc extrusion which effaces the subarticular zone and compresses the traversing S1 nerve roots as well as results in moderate left eccentric central spinal canal stenosis. There is exuberant endplate marrow edema and enhancement at this level. 2. Additional multilevel degenerative changes of the lumbar spine as described above without significant central spinal canal stenosis or high-grade neural foraminal narrowing. 07/02/22: XR LUMBOSACRAL SPINE FINDINGS: Bone alignment is normal. No fracture or dislocation. Mild disc space narrowing at L4-L5 and L5-S1. Lower lumbar spine facet arthritis and spondylosis. IMPRESSION: Degenerative changes. Assessment & Plan Assessment & Plan (1) Lumbar disc herniation with radiculopathy: Code(s): M51.16 - Intervertebral disc disorders with radiculopathy, lumbar region Plan Review of MRI reveals a large paracentral disc extrusion. This is a surgical condition in setting of failure of 6 months of conservative therapy. A referral was provided to neurosurgeon for consideration of surgical L4-5 diskectomy/decompression. He will follow-up as needed after the surgical decompression. Patient is in agreement with the plan. Scribed for Dr. De La Garza by Vincent Miller, medical services assistant, on 12/01/2022. I, Dr. De La Garza, have personally reviewed and agree with the information entered by the scribe. Orders: Referrals Neurosurgery Referral M51.16 - Intervertebral disc disorders with radiculopathy, lumbar region Coding Level of Care Code New Pt Level 4 (47715) Diagnoses Lumbar disc herniation with radiculopathy M51.16
[2022-12-01 10:57] VITALS: BP 119/70; PULSE 94; RESP 14; O2SAT 97; BMI 22.8
== END 2022-12-01 11:40 | disposition home or self-care (01) ==
PROVIDERS: PCP Nurse Practitioner Primary Care; Visit Provider Internal Medicine
DX: M51.16 Intervertebral disc disorders with radiculopathy, lumbar region (principal)
CPT/HCPCS: 99204

== ENCOUNTER → 2022-12-01 10:51 | Outpatient (BNVA) | payer MEDICAID, SELFPAY | PROVIDERS: PCP Nurse Practitioner Primary Care; Visit Provider Internal Medicine | DX: M51.16 Intervertebral disc disorders with radiculopathy, lumbar region (principal) | CPT/HCPCS: 99202 ==

== ENCOUNTER 2022-12-09 13:47 | Outpatient (AMB) | payer MEDICAID, SELFPAY ==
--- NOTE | 2022-12-09 14:16 | HO.SPINEOV ---
Intake Intake Visit Reasons: low back pain Intake Note: Mr. Rashi Mendoza is here today c/o low back pain. MRI done @ [facility]. Grape Crusher Required: Yes Allergies lodine Allergy (Uncoded 12/01/22 10:59) Unknown Assessment & Plan Assessment & Plan (1) Lumbar disc herniation with radiculopathy: Code(s): M51.16 - Intervertebral disc disorders with radiculopathy, lumbar region Plan Dear colleague, Thank you for referring Van to our office today. He is a pleasant 47-year-old male who presents with low back pain (rates his pain as 8/10 constant) with bilateral radicular symptoms radiating down the posterior aspect of his legs to his feet. He reports that he awoke 6-7 months ago and began feeling back pain in a sciatic distribution. He reports no inciting incident. 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 He reports that initially he had left-sided leg pain when his symptoms started 6-7 months ago, but in the last couple of months he has developed bilateral pain / numbness / weakness and burning sensation down the posterior aspect of his legs. He denies saddle anesthesia, and is able to void without difficulty. PMH: Hepatitis C, HIV (human immunodeficiency virus infection), Hx Opioid dependence, GERD. Social hx: Smokes 1/2 ppd. No recreational substance use. Takes Suboxone daily for OUD. Medications: Triumeq, Suboxone, Dexamethasone, Eucerin, Famotidine, Gabapentin, Robaxin, MVI, Tramadol. Allergies: Iodine allergy Physical exam: Patient ambulates with cane, has difficulty raising feet off the ground. Diffuse numbness in bilateral lower extremities in an L5-S1 dermatome distribution. Foot drop grade 3/5 on the right side. Lower extremity reflexes (2+) intact. (+) straight leg raise bilaterally. (-) Babinski (-) clonus. Imaging review: MRI 11/04/22 shows large L5/S1 disc herniation with extruded fragment compressing the L sided S1 nerve root and causing severe central spinal canal stenosis. Impression: The patient is a 47-year-old male presents with 6 months of low back pain which he rates as 8/10 constant pain. He reports no inciting incident. He endorses bilateral numbness and weakness significantly increasing over the course of the last couple of months. He now states that he is having difficulty using his feet, and has fallen at home. This has caused him to now ambulate with a cane. He reports mild relief of symptoms with gabapentin and Suboxone. His MRI is significant for a large L5-S1 disc bulge. This case was discussed with Dr. Glynn, who offered the patient a L5-S1 diskectomy. The patient was agreeable to this plan, and he was scheduled for January 06. He was encouraged to make an appointment with his primary care provider to obtain medical clearance for the surgery. Thank you for allowing us to care for your patient. The total time spent with this visit with this patient was 45 minutes reviewing history, physical exam, MRI lumbar spine imaging review, and implementation of treatment plan or further diagnostic testing Frederic Glynn MD,PhD [facility] Coding Level of Care Code New Pt Level 4 (10130) Diagnoses Lumbar disc herniation with radiculopathy M51.16
== END 2022-12-09 14:42 | disposition home or self-care (01) ==
PROVIDERS: PCP Nurse Practitioner Primary Care; Referring Provider Internal Medicine; Supervising Provider Neurological Surgery; Visit Provider Physician Assistant
DX: M51.16 Intervertebral disc disorders with radiculopathy, lumbar region (principal)
CPT/HCPCS: 99204

== ENCOUNTER → 2022-12-09 13:47 | Outpatient (BNVA) | payer MEDICAID, SELFPAY | PROVIDERS: PCP Nurse Practitioner Primary Care; Referring Provider Internal Medicine; Visit Provider Physician Assistant | DX: M51.16 Intervertebral disc disorders with radiculopathy, lumbar region (principal) | CPT/HCPCS: 99204 ==

== ENCOUNTER 2022-12-16 08:31 | Outpatient (REF) | payer MEDICAID, SELFPAY ==
[2022-12-18 18:33] LABS: HIV RNA PCR Qn Copies NOT DETECTED copies/mL (NOT DETECTED); HIV RNA PCR Qn Log Copies NOT DETECTED (NOT DETECTED)
== END 2022-12-16 08:32 | disposition home or self-care (01) ==
LOC: HO.LAB 08:31
PROVIDERS: Visit Provider Internal Medicine
DX: B20 Human immunodeficiency virus [HIV] disease (principal)
CPT/HCPCS: 36415; 87536

== ENCOUNTER 2023-01-06 07:31 | Day surgery (SDC) | payer MEDICAID, SELFPAY ==
--- NOTE | 2022-12-23 | ECG_ITS ---
Test Reason : preop Blood Pressure : / mmHG Vent. Rate : 065 BPM Atrial Rate : 065 BPM P-R Int : 198 ms QRS Dur : 090 ms QT Int : 366 ms P-R-T Axes : 080 031 034 degrees QTc Int : 380 ms Normal sinus rhythm Normal ECG No previous ECGs available Referred By: Sahara Tyson Electronically Signed By:NICKOLAS MILLER
[2022-12-23 13:12] VITALS: BP 111/72; PULSE 79; RESP 16; O2SAT 97; BMI 23.5
--- NOTE | 2022-12-23 13:26 | HO.ANESPROP2 ---
Documented by User: Sahara Tyson NP 01/05/23 09:05 HPI - Anesthesia Eval Consult details Narrative: 47yo M for Left L5-S1 Micro Lumbar discectomy, 01/06/23 No recent illness No CP/SOB with minimal acitvity r/t pain Suboxone daily 20mg daily (8mg, 8mg, 4mg). Pt will decrease to 12mg daily 3 days preop. (8mg, 4mg). Confirmed with Dr Daley. FOR[facility]LY [facility] Active Problems Active Problems: All Active Problems (Updated 12/01/22 @ 11:07 by Rick De La Garza MD) PAD (peripheral artery disease) (Acute) Varicose veins of right lower extremity with inflammation (Acute) Lumbar disc herniation with radiculopathy (Acute) Past Medical History Medical History (Updated 12/23/22 @ 14:46 by Margie Sanchez, PER) Ambulates with cane Hepatitis C HIV (human immunodeficiency virus infection) Lumbar disc herniation Opioid dependence Peripheral neuropathy Spinal stenosis of lumbar region with neurogenic claudication Spinal stenosis, lumbosacral region Family History Family history of problems with anesthesia: No Surgical History Surgical History (Updated 12/23/22 @ 13:00 by Margie Sanchez RN) Hx of exploratory laparotomy History of Problems with Anesthesia: No Social History Social History (Updated 12/23/22 @ 14:48 by Margie Sanchez, RN) Household Members: Spouse Housing: Apartment Are you a primary director career services to a significant other at home: No Do you presently have visiting nurse or other home services: No Patient Tobacco Use Status: Current everyday Tobacco user Tobacco use type: Cigarette Cigarettes Per Day: 10 Years Smoked: 32 Smoked in Last 30 Days: Yes Patient Interested in Nicotine Replacement: No Use of substances other than those prescribed or required for medical reasons: Yes Substance Use Type: Marijuana Substance Use Frequency: Daily Have you been hit, kicked, punched, or otherwise hurt by someone within the past year? If so, by whom?: No Are you DNR?: No Advance Directives: No Advance Directives Information Provided: Yes Advance Directives on File: No Recently lost weight without trying: No Nutrition Risks: No Nutritional Risk Poor oral hygiene: No (teeth on bottom) Meds Allergies Allergy/AdvReac Type Severity Reaction Status Date / Time shellfish derived Allergy Severe Anaphylaxis Verified 12/23/22 12:59 lodine Allergy Unknown Unknown Uncoded 12/23/22 12:59 Home Medications Medication Instructions Recorded Confirmed Last Taken Type abacavir 600 mg-dolutegravir 50 1 tab PO DAILY 11/15/20 12/23/22 Unknown History mg-lamivudine 300 mg tablet (Triumeq) emollient combination no.114 appl topical 11/15/20 12/01/22 Unknown History (Eucerin Advanced Repair topical cream) famotidine 20 mg tablet 20 mg PO BID 11/15/20 01/06/23 Unknown History multivitamin 1 tab PO DAILY 11/15/20 12/01/22 Unknown History buprenorphine 4 mg-naloxone 1 mg 4 mg sublingual BEDTIME 12/23/22 12/23/22 Unknown History sublingual film (Suboxone) buprenorphine 8 mg-naloxone 2 mg 8 mg sublingual .AM AND AFTERNOON 12/23/22 01/06/23 Unknown History sublingual film (Suboxone) gabapentin 800 mg tablet 800 mg PO TID 12/23/22 01/06/23 Unknown History Exam Exam Date and Time: December 23, 2022 1326 Height,Weight and Vital Signs: Height 6 ft 1 in Weight 80.8 kg Last Vital Signs Pulse 79 12/23/22 13:12 Resp 16 12/23/22 13:12 BP 111/72 12/23/22 13:12 Pulse Ox 97 12/23/22 13:12 O2 Del Method Room Air 12/23/22 13:12 Pertinent Lab Results Pertinent Lab Results: Laboratory Tests 10/23/22 10/23/22 12:59 12:59 WBC 6.6 Hgb 14.2 Hct 42.9 Plt Count 186 D Sodium 141 Potassium 4.8 Chloride 104 Carbon Dioxide 29 BUN 8 L Creatinine 0.74 Narrative Narrative: EKG 12/2022 Vent. Rate : 065 BPM ? ? Atrial Rate : 065 BPM ?? P-R Int : 198 ms? QRS Dur : 090 ms ? ? QT Int : 366 ms ? ? ? P-R-T Axes : 080 031 034 degrees ?? QTc Int : 380 ms ? Normal sinus rhythm Normal ECG No previous ECGs available ECHO 2020 Conclusions: -? Essentially normal study? ?? 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 Discussed and PAT Visit Final Anesthetic Review Family History of Problems with Anesthesia: No History of Problems with Anesthesia: No Documented by User: Donte Crowell MD 01/06/23 08:56 PMFSH Past Medical History Medical History (Updated 12/23/22 @ 14:46 by Margie Sanchez RN) Ambulates with cane Hepatitis C HIV (human immunodeficiency virus infection) Lumbar disc herniation Opioid dependence Peripheral neuropathy Spinal stenosis of lumbar region with neurogenic claudication Spinal stenosis, lumbosacral region Surgical History Surgical History (Updated 12/23/22 @ 13:00 by Margie Sanchez RN) Hx of exploratory laparotomy Social History Social History (Updated 12/23/22 @ 14:48 by Margie Sanchez RN) Household Members: Spouse Housing: Apartment Are you a primary director career services to a significant other at home: No Do you presently have visiting nurse or other home services: No Patient Tobacco Use Status: Current everyday Tobacco user Tobacco use type: Cigarette Cigarettes Per Day: 10 Years Smoked: 32 Smoked in Last 30 Days: Yes Patient Interested in Nicotine Replacement: No Use of substances other than those prescribed or required for medical reasons: Yes Substance Use Type: Marijuana Substance Use Frequency: Daily Have you been hit, kicked, punched, or otherwise hurt by someone within the past year? If so, by whom?: No Are you DNR?: No Advance Directives: No Advance Directives Information Provided: Yes Advance Directives on File: No Recently lost weight without trying: No Nutrition Risks: No Nutritional Risk Poor oral hygiene: No (teeth on bottom) Meds Allergies Allergy/AdvReac Type Severity Reaction Status Date / Time shellfish derived Allergy Severe Anaphylaxis Verified 12/23/22 12:59 lodine Allergy Unknown Unknown Uncoded 12/23/22 12:59 Home Medications Medication Instructions Recorded Confirmed Last Taken Type abacavir 600 mg-dolutegravir 50 1 tab PO DAILY 11/15/20 12/23/22 Unknown History mg-lamivudine 300 mg tablet (Triumeq) emollient combination no.114 appl topical 11/15/20 12/01/22 Unknown History (Eucerin Advanced Repair topical cream) famotidine 20 mg tablet 20 mg PO BID 11/15/20 01/06/23 Unknown History multivitamin 1 tab PO DAILY 11/15/20 12/01/22 Unknown History buprenorphine 4 mg-naloxone 1 mg 4 mg sublingual BEDTIME 12/23/22 12/23/22 Unknown History sublingual film (Suboxone) buprenorphine 8 mg-naloxone 2 mg 8 mg sublingual .AM AND AFTERNOON 12/23/22 01/06/23 Unknown History sublingual film (Suboxone) gabapentin 800 mg tablet 800 mg PO TID 12/23/22 01/06/23 Unknown History Assessment and Plan Final Anesthetic Review NPO: Yes ASA Class: III Final Preanesthetic Review: No Changes in Pt Med Stat, Meds/Allgs Chart Reviewed, Consent Obtained/Reviewed and Anes Risks/Benef Reviewed Patient Risk: Intermediate Procedure Risk: Intermediate Anesthetic Plan Anesthetic Plan: GA and Agree w/ Assess. and Plan Disposition: Standard PACU
[2023-01-06] VITALS (8 sets, daily range): BP systolic 105–146; BP diastolic 71–98; PULSE 49–75; RESP 14–18; TEMP 36.3–36.6; O2SAT 98–99; BMI 21.8
--- NOTE | ~2023-01-06 | FL_ITS ---
EXAMINATION: XR FLUOROSCOPY WITH IMAGES CLINICAL INFORMATION: L5-S1 microlumbar decompression, left. COMPARISON: None available. TECHNIQUE: Fluoroscopy Supervised By: Dr. Freddy Glynn. Fluoroscopy Time: 0.0 (less than 1 minute). Cumulative Dose: 2.34 mGy. DAP: 0.639 Gycm2. Images: 3. FINDINGS: Images demonstrate marker and surgical instruments projecting over the posterior elements posterior the L5-S1 disc space level. FL/FL guidance in OR IMPRESSION: Fluoroscopy guidance for lumbar spine surgery.
--- NOTE | 2023-01-06 07:03 | P.HPSUR_ITS ---
Pre-Procedural Eval Section A Date of Service: 01/06/23 Section B Chief Complaint: Intervertebral disc disorders with radiculopathy, Allergies: Allergies Allergy/AdvReac Type Severity Reaction Status Date / Time shellfish derived Allergy Severe Anaphylaxis Verified 12/23/22 12:59 lodine Allergy Unknown Unknown Uncoded 12/23/22 12:59 Review of Systems Sugical H&P ROS: Negative: Constitution, Cardiovascular, Respiratory, Neurological, Psychiatric, Hem-Onc, Allergic/Immunologic, Gastrointestinal, Genitourinary, Musculoskeletal, Integumentary, Endocrine and Eyes/Ears/Nose/Thro at Exam Surgical H&P Exam: Not Evaluated: HEENT, Not Evaluated: Heart, Not Evaluated: Lungs, Not Evaluated: Extremities, Not Evaluated: Abdomen, Not Evaluated: Skin and Not Evaluated: Neurological Plan I have reviewed the history and physical and performed a pertinent physical examination on my patient. No changes have occurred unless specified. Plan remains left L5-S1 micodiskectomy Time Spent With Patient Time: Total time managing care of this patient today __10__ minutes.
[2023-01-06] MEDS: Lactated Ringers 1,000 ML 100 ML IVCONT (08:27)
[2023-01-06] MEDS: methocarbamoL 750 MG TABLET PO (08:42)
[2023-01-06] MEDS: Gabapentin 300 MG CAPSULE PO (08:42)
--- NOTE | 2023-01-06 09:28 | PC.NURSE ---
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 Dr. Saleem notified, ok'd. anesthesia nurse reiterated what this rn stated to pt. risk of aspiration pneumonia explained and honesty imperative with no cancellation risk, just different approach. proceeding per anesthesia Dr. Crowell also aware.
--- NOTE | 2023-01-06 10:58 | P.OP_ITS ---
Operative Note Operative Note Date of Service: 01/06/23 Narrative: Preoperative diagnosis: Bilateral lumbar radiculopathy and weakness due to disc herniation Postoperative diagnosis: Same Procedure: L5-S1 lumbar microdiskectomy with microscope, left side approach Surgeon: Freddy Glynn MD, PhD Principal Investigator: Robert Ellington This 47-year-old male is suffering from bilateral lumbar radiculopathy and progressive weakness of the lower legs. An MRI shows a large extruded disc herniation eccentric towards the left side. The central component is causing severe compression of the thecal sac and therefore producing spinal stenosis. The patient was offered a lumbar microdiskectomy to decompress the nerve root. The procedure complications were explained. The patient was consented. The patient was brought to the operating room and endotracheally intubated. The pat ient was turned in a prone position on the John frame. Prepping and draping was done followed by time-out. A mid lumbar incision was made followed by release of the paravertebral muscles on the left side to expose the L5-S1 interspace. An intraoperative x-rays obtained to confirm the correct level. The microscope was brought in. A L5 laminotomy was done followed by opening of the flavum ligament. The S1 nerve root was identified and retracted medially to expose the L5-S1 disc space. I could palpate a large disc herniation medial from the S1 nerve root. The nerve root was inflamed and deviated laterally and posteriorly. I had to do a partial facetectomy to get a safer access. An annulotomy was done but unfortunately the disc was stuck under the thecal sac and did not present itself for an easy removal. I cleaned out the L5-S1 disc space as much as possible and push some fragments down with a downward curved currtette. Slowly but certain I was able to remove large fragments from underneath the thecal sac in the central and right sided area with a straight and curved pituitary. Eventually, the S1 nerve root returned to its original position and the inflammation resolved. The disc space was inspected and any residual disc fragments were removed. Hemostasis was done. The microscope was removed. Marcaine was injected intramuscularly.The incision was closed in two layers. Steri-Strips used to approximate seizure. An op-site were taken there was used to cover the incision. All sponge and needle counts were correct. Patient was extubated and transported in stable condition to recovery room. this procedure was done with the aid of a physician anesthetic assistant who performed the initial exposure until the microscope was brought in and performed the closure of the incision. Anesthesia: General Blood loss: 10 mL Complications: None Specimen: None Disposition: Discharge home
--- NOTE | 2023-01-06 11:12 | PM.DS ---
DS: Providers Provider Date of Service: 01/06/23 Date of discharge: 01/06/23 Primary care physician: Unknown Physician Admitting clinician: Freddy Glynn DS: Diagnosis Discharge Diagnosis (1) Lumbar disc herniation with radiculopathy: Status: Acute DS: Summary Time Spent with Patient Time attestation: Total time managing care of this patient today ____ minutes. Discharge coordination time: Less than 30 minutes Quality: Safe Use of Opioids Does Pt have an Active Cancer Diagnosis on the Problem List?: No Quality: Stroke Does the patient have a stroke diagnosis?: No Physical Exam Vital Signs: Vital Signs: Last Vital Signs Pulse 79 12/23/22 13:12 Resp 16 12/23/22 13:12 BP 111/72 12/23/22 13:12 Pulse Ox 97 12/23/22 13:12 O2 Del Method Room Air 12/23/22 13:12 BMI result Body Mass Index 21.8 DS: Data Data Completed and Pending Labs on day of discharge: Laboratory Results - last 24 hr 01/06/23 08:30 Blood Type AB Positive Antibody Screen NEGATIVE Discharge Plan Discharge Patient Disposition: Home, Self-Care Referrals: Physician,Unknown J [Primary Care Provider] - 1 Week Discharge Medications: New oxycodone 5 mg tablet 5 mg PO Q6-8H PRN (Reason: pain) Qty: 12 0RF Rx Instructions: Partial Fill upon patient request. Continued gabapentin 800 mg tablet 800 mg PO TID Eucerin Advanced Repair Cream topical famotidine 20 mg tablet 20 mg PO BID Triumeq 600-50-300 mg tablet 1 tab PO DAILY multivitamin Tablet 1 tab PO DAILY Held buprenorphine-naloxone [Suboxone] 8-2 mg film 8 mg sublingual .AM AND AFTERNOON Hold Instructions: Resume on 01/09/23. resume after 3 days when oxycodone is used up buprenorphine-naloxone [Suboxone] 4-1 mg film 4 mg sublingual BEDTIME Hold Instructions: Resume on 01/09/23. resume in 3 days after oxycodone is used up tramadol 50 mg tablet 50 mg PO Q6H PRN (Reason: severe pain (scale score 7-10)) Qty: 12 0RF Hold Instructions: Resume on 01/09/23. can resume after oxycodone used up Discontinued dexamethasone 4 mg tablet 4 mg PO BID Qty: 6 0RF Discharge Orders: Discharge Order (Routine); Ordered 01/06/23 Ordered By: Robert Peres Diet: Advance to usual diet Activity on Discharge: As tolerated Activity Restrictions/Additional Instructions: After your spinal surgery we ask you to observe the following restrictions/guidelines: Activity: It is normal to feel some discomfort as you increase your activity, but that will improve with time. We ask you avoid heavy lifting or acitivities that cause pain. As a general rule, 8lbs is a safe limit for lifting right after surgery. Walk as much as you feel comfortable but not to exhaustion. You will feel extra tired the first few days after surgery. Stay well hydrated. It is OK to walk up and down stairs You may return to driving when you are off narcotics (such as vicodin, oxycodone, dilaudid, etc), and you are back to normal functional capacity. If you have any concerns please check with office before driving. Return to work is specific to each patient and each surgery, so please speak with your doctor/PA at first follow up. Please bring paperwork such as FMLA at that time if you need it filled out. Medications: We gave you 3 days worth of oxycodone, once that is used up you can resume your Suboxone And tramadol. For optimum pain control, it is best to start with a combination of 500 mg of Tylenol every 4 hours with 600 mg of Motrin every 8 hours, and use narcotics as needed in between for breakthrough pain. We will give you a short supply of narcotics after surgery (usually one weeks worth). If you need more please call the office but do not use more than prescribed. You will need to give our office 48 hours notice if you need narcotics refilled and we do not fill narcotics on weekends or evenings. If you are on a narcotic, it is a good idea to take a stool softener such as colace or senna to avoid constipation If you take blood thinner such as aspirin, Plavix, Coumadin, Effient, Eliquis etc for conditions such as Afib, DVT, Pulmonary embolus, coronary disease, stents etc please speak with your surgeon about specific details as to when you can resume these medications. You can resume NSAIDs on post op day 1 (eg: Motrin, Naproxen, etc). Follow up: Please call the office, , after surgery to arrange a 3 week follow up for wound check. Wound Care: You may remove your dressing on the first day after surgery. You may leave open to air. Please do not remove the steri strips underneath. they will fall off on their own in one week. IT IS NORMAL FOR THE WOUND TO OOZE OR BE BLOODY FOR A FEW DAYS AFTER SURGERY. IF THIS HAPPENS JUST PLACE NEW DRESSING OVER IT TO AVOID STAINING CLOTHES. You may shower on post op day # 1 We ask that you do not let the water soak the wound. If it does get wet, just towel dry lightly. Please do not scrub your incision or place any type of chemical/ointment on the wound. No tub baths, pools or jacuzzis for one month. If you have any leaking or redness from your wound, or fevers, please call office
[2023-01-06] MEDS: HYDROmorphone HCl 0.5 MG/0.5 ML SYRINGE IVPUSH ×2 (11:42→11:47)
== END 2023-01-06 13:05 | disposition home or self-care (01) ==
PROVIDERS: Visit Provider Neurological Surgery
PROC: (CPT 63030; principal; 2023-01-06 09:10)
DX: M51.16 Intervertebral disc disorders with radiculopathy, lumbar region (principal); M54.50 Low back pain, unspecified; M79.662 Pain in left lower leg; M79.661 Pain in right lower leg; R53.1 Weakness; R20.0 Anesthesia of skin; F11.20 Opioid dependence, uncomplicated; B20 Human immunodeficiency virus [HIV] disease; B19.20 Unspecified viral hepatitis C without hepatic coma; K21.9 Gastro-esophageal reflux disease without esophagitis; Z79.899 Other long term (current) drug therapy; Z99.89 Dependence on other enabling machines and devices; Z91.041 Radiographic dye allergy status; F17.210 Nicotine dependence, cigarettes, uncomplicated
CPT/HCPCS: 63030; 86850; 86900; 86901; 93005; J0131; J0690; J1100; J1170; J1885; J2250; J2405; J3010

== ENCOUNTER → 2023-01-06 07:31 | Outpatient (BNV) | payer MEDICAID, SELFPAY | PROVIDERS: Visit Provider Neurological Surgery | DX: M51.16 Intervertebral disc disorders with radiculopathy, lumbar region (principal) | CPT/HCPCS: 63030 ==

== ENCOUNTER 2023-01-27 14:19 | Outpatient (AMB) | payer MEDICAID, SELFPAY ==
--- NOTE | 2023-01-27 14:36 | A.SPINEOV_ITS ---
Intake Intake Visit Reasons: 1st post-op Intake Note: Mr. Rashi Mendoza is here today for his 1st post-op visit. Casting Machine Set Up Operator Required: No Allergies shellfish derived Allergy (Severe, Verified 12/23/22 12:59) Anaphylaxis lodine Allergy (Unknown, Uncoded 12/23/22 12:59) Unknown Assessment & Plan Assessment & Plan (1) Status post lumbar spine surgery for decompression of spinal cord: Code(s): Z98.890 - Other specified postprocedural states Plan Van was seen today for his first postoperative visit. He is s/p L5-S1 lumbar microdisketomy on 01/06/23. He feels he is doing much better than he was preoperatively. He states that he is very satisfied with this surgery and is very happy to have sensation back in his legs and feet. He states that ever since his surgery he immediately upon waking up he was able to feel good/strong sensation in his legs again for the 1st time in several weeks. He reports that he is still ambulating with a cane but is able to get around well and feels he is able to accomplish the majority of his ADLs. He is able to sleep well, ambulate around his house, go to the store, and prepare food on his own. He states he does still occasionally feel pinching in his low back and has some radiation of pain down his posterior legs bilaterally but overall feels they are much better. He is able to manage his pain with bqxp-wna-diwdnez medications. On exam the patient ambulates with a cane. He is able to rise from a seated position without much difficulty. His incision site is well healing, clean, dry, intact & without drainage. Van will need to make an appointment to be seen again in 6 weeks. If he continues to do well and has steady improvement he can be discharged after his next postoperative appointment. Frederic Glynn MD,PhD [facility] Coding Level of Care Code Global (76024) Diagnoses Status post lumbar spine surgery for decompression of spinal cord Z98.890
== END 2023-01-27 14:55 | disposition home or self-care (01) ==
PROVIDERS: Visit Provider Physician Assistant
DX: Z98.890 Other specified postprocedural states (principal)
CPT/HCPCS: 99024

== ENCOUNTER → 2023-01-27 14:19 | Outpatient (BNVA) | payer MEDICAID, SELFPAY | PROVIDERS: Visit Provider Physician Assistant ==

== ENCOUNTER → 2023-03-11 14:44 | Outpatient (BNVA) | payer MEDICAID, SELFPAY | PROVIDERS: Visit Provider Physician Assistant ==

== ENCOUNTER 2023-06-05 11:09 | Outpatient (REF) | payer MEDICAID, SELFPAY ==
[2023-06-05 11:24] LABS: MANUAL DIFF FLAG NO
[2023-06-05 11:54] LABS: Basophils Percent Auto 0.4 % (0-2); Eosinophils Absolute Auto 0.1 X10*3/uL (0.0-0.4); Eosinophils Percent Auto 1.2 % (0-4); Hematocrit 44.1 % (42.0-52.0); Hemoglobin 14.9 g/dl (14.0-18.0); Imm Gran Abs Auto 0.02 X10*3/uL (0.00-0.03); Imm Gran Pct Auto 0.2 % (0.0-0.4); Lymphocytes Absolute Auto 3.8 X10*3/uL (1.2-4.9); Lymphocytes Percent Auto 42.6 % (20-40); Mean Corpuscular HGB Conc 33.8 g/dl (31.0-36.0); Mean Corpuscular Hemoglobin 31.8 pg (27.0-33.0); Mean Corpuscular Volume 94.2 fL (80.0-98.0); Monocytes Absolute Auto 0.5 X10*3/uL (0.1-1.2); Monocytes Percent Auto 5.5 % (2-11); Neutrophils Absolute Auto 4.5 x10*3/uL (2.0-8.3); Neutrophils Percent Auto 50.1 % (45-73); Platelet Count 178 X10*3/uL (160-400); Red Blood Count 4.68 X10*6/uL (4.60-5.80); Red Cell Distribution Width 12.4 % (11.0-16.0)
[2023-06-05 12:36] LABS: Alanine Aminotransferase 11 U/L (0-40); Albumin Level 4.1 g/dL (3.5-5.0); Alkaline Phosphatase 102 U/L (39-117); Anion Gap 12 (12-20); Aspartate Amino Transferase 18 U/L (5-37); Bilirubin Total 0.6 mg/dL (0.0-1.0); Blood Urea Nitrogen 12 mg/dL (9-16); Calcium 9.5 mg/dL (8.4-10.2); Carbon Dioxide 24 mmol/L (22-29); Chloride 106 mmol/L (96-108); Estimated Glomerular Filt Rate > 60; Glucose Random 96 mg/dL (60-115); Potassium 4.2 mmol/L (3.3-5.1); Sodium 138 mmol/L (135-145)
[2023-06-08 09:04] LABS: Absolute CD3 Count 2664 cells/uL (840-3060); Absolute CD4 Count 1669 cells/uL (490-1740); Absolute CD8 Count 990 cells/uL (180-1170); Absolute Lymphocytes 3590 cells/uL (850-3900); CD4 CD8 Ratio 1.69 (0.86-5.00); Percent CD3 Cells 74 % (57-85); Percent CD4 Cells 46 % (30-61); Percent CD8 Cells 28 % (12-42)
[2023-06-09 12:43] LABS: HIV RNA PCR Qn Copies NOT DETECTED copies/mL (NOT DETECTED); HIV RNA PCR Qn Log Copies NOT DETECTED (NOT DETECTED)
== END 2023-06-05 11:10 | disposition home or self-care (01) ==
LOC: HO.LAB 11:09
PROVIDERS: PCP Nurse Practitioner Primary Care; Visit Provider Internal Medicine
DX: B20 Human immunodeficiency virus [HIV] disease (principal)
CPT/HCPCS: 36415; 80053; 85025; 86359; 86360; 87536

== ENCOUNTER 2023-08-11 15:00 | Outpatient (RCR) | payer MEDICAID, SELFPAY ==
--- NOTE | 2023-04-16 16:51 | MHC.PT.EP ---
[facility] [place] Office [place] Office [place] Office [address] Jamari Loja [address] [phone] F: [phone] F: [phone] F: [phone] F: [phone] Physical Therapy Plan of Care Date of Evaluation: 04/16/23 Date of Surgery: 01/06/2023 Diagnosis: s/p L5-S1 lumbar microdisketomy on 01/06/23 Assessment: Patient is a 48 y.o. Turkish speaking male who is referred to PT by ARNIE Ritchie with Dx of s/p lumbar supine surgery for decompression of spinal cord. PT diagnosis is s/p L5-S1 lumbar microdisketomy on 01/06/23, with lumbar radicuolpathy, worse on L. Patient impairments include pain, radicuolpathy (worse on L), weakness in hips, knees, ankles, core/abdominal musculature, poor postures and body mechanics, antalgic gait with need for AD. Patient current functional limitations are bend/squat, sudden or fast movements, walking outdoors/uneven surfaces, prolonged walking, difficulty sleeping (tends to sleep in recliner), needs help with dressing, bathing, cooking/cleaning. Patient will benefit from skilled PT to address aforementioned impairments and functional limitations to meet established goals. Frequency and Duration: The patient will be seen 2x/week for 4 weeks Short Term Goals: 2 weeks Van demonstrates consistency and independence with HEP to self manage symptoms. Van is able to demonstrate use of lumbar roll in sitting and stands with erect posture, avoiding increased lumbar flexion/slouching to reduce strain on lumbar discs. Long-Term Goals: 4 weeks Van presenst with increased bilateral hip flexion 4+/5 to be able to ascend/descend steps with railing reciprocally. Van presents with increased L knee extension 4+/5 to be able to perform sit to stand with minor use of hands and good mechanics. Treatment Plan: Modalities to reduce pain, spasms and effusion. Manual therapy to restore motion and function. Therapeutic exercise to improve strength and flexibility. Neuromuscular re-education for posture and balance. Therapeutic activities to return to functional activities of daily living. Electronically signed by: Chelsea Wolff PT, DPT Please sign and return to therapist. Thank you for your referral.
--- NOTE | 2023-08-11 16:00 | MHC.PT.DC ---
[facility] [place] Office [place] Office [place] Office [address] Jamari Loja [address] [phone] F: [phone] F: [phone] F: [phone] F: [phone] Physical Therapy Discharge Report Diagnosis: s/p L5-S1 lumbar microdisketomy on 01/06/23 Date of Surgery: 01/06/2023 Date of Evaluation: 04/16/23 Date of Discharge: 08/11/23 Treatments to Date: 15 Cancellations to Date: 7 No Shows to Date: 6 Discharge Status: Achieved Goals Improved Function Independent with HEP Discharge Summary: Throughout his time in PT Van showed objective progress with improved posture, able to now sit and stand and walk erect at lumbar neutral and ambulate with improved gait, less deviations and without AD without recent falls. He also has more ease with transfers and minimal use of hands for sit to stand. He continued with c/o pain and numbness/tingling in LEs, L worse than R. He also shows more weakness in L LE. I discuss with patient that he will need to continue with HEP for usp symptom management as well as to continue to make gains in strength and healing of nerves is also a slow process. Recommend PT FUP with spine surgeon to discuss pain management options. Electronically signed by: Chelsea Wolff, PT, DPT Please sign and return to therapist. Thank you for your referral.
== END 2023-08-11 16:01 | disposition home or self-care (01) ==
LOC: HO.PT 15:00
PROVIDERS: PCP Nurse Practitioner Primary Care; Visit Provider Physician Assistant
DX: Z98.890 Other specified postprocedural states (principal)
CPT/HCPCS: 97014; 97110; 97112; 97140; 97161; 97530

== ENCOUNTER 2023-08-19 09:55 | Outpatient (AMB) | payer MEDICAID, SELFPAY ==
--- NOTE | 2023-08-19 10:02 | A.SPINEOV_ITS ---
Intake Intake Visit Reasons: follow up after PT Intake Note: Mr. Fernández is here today to F/u after PT Dietitian Teaching Required: Yes Dietitian Teaching Name: Tablet Allergies shellfish derived Allergy (Severe, Verified 12/23/22 12:59) Anaphylaxis lodine Allergy (Unknown, Uncoded 12/23/22 12:59) Unknown Assessment & Plan Assessment & Plan (1) Lumbar radiculopathy: Code(s): M54.16 - Radiculopathy, lumbar region Plan Procedure: Left sided L5-S1 lumbar microdiskectomy Van comes in today as a follow-up patient after previously requesting physical therapy due to some residual left-sided leg pain after his surgery. Postoperatively he was doing very well, and reported significant reduction in his symptoms. He still states that the worst of his symptoms that he had prior to surgery have resolved, however he is concerned that some of the sharp burning pains that he had preoperatively in his posterior left calf in the bottom of his foot have returned. He has completed a full 6 weeks of physical therapy, has been trying to utilize ice, heat, flvn-ows-[id number] pain medications, and stretching/exercise and none of these have provided him with resolution of symptoms. In office today he sits favoring his right side bracing himself on the right side of the chair. He ambulates with an antalgic gait favoring his right. He reports decreased sensation over his left posterior gastrocnemius in the bottom of his left foot. I am concerned that Van may have a recurrent disc herniation given his disclosure of sharp burning pain in an S1 distribution that has recurred since his surgery. I will be sending him for a repeat MRI of the lumbar spine to evaluate for any new or recurrent pathology. Frederic Glynn MD,PhD [facility] Orders: Orders MR lumbar spine wo con Today M54.16 - Radiculopathy, lumbar region Coding Level of Care Code Global (11207) Diagnoses Lumbar radiculopathy M54.16
== END 2023-08-19 10:33 | disposition home or self-care (01) ==
PROVIDERS: PCP Nurse Practitioner Primary Care; Visit Provider Physician Assistant
DX: M54.16 Radiculopathy, lumbar region (principal)
CPT/HCPCS: 99213

== ENCOUNTER → 2023-08-19 09:55 | Outpatient (BNVA) | payer MEDICAID, SELFPAY | PROVIDERS: PCP Nurse Practitioner Primary Care; Visit Provider Physician Assistant | DX: M54.16 Radiculopathy, lumbar region (principal) | CPT/HCPCS: 99212 ==

== ENCOUNTER 2023-08-27 19:50 | Outpatient (REF) | payer MEDICAID, SELFPAY ==
--- NOTE | ~2023-08-27 | MR_ITS ---
EXAMINATION: MR LUMBAR SPINE WITHOUT CONTRAST CLINICAL INFORMATION: Radiculopathy COMPARISON: MRI lumbar spine 11/04/2022 TECHNIQUE: MRI of the lumbar spine was obtained using routine sequences without the administration of intravenous contrast. FINDINGS: This examination assumes the presence of 5 lumbar type vertebral bodies. For the purposes of this examination, the L5-S1 intervertebral disc space is visualized on axial series 5 image 27. Straightening of the normal lumbar lordosis. Trace anterolisthesis of L4-L5. Lumbar vertebral body heights are maintained. There is progressive exuberant edema at L5 and S1 extending into the L5 pedicles/posterior elements, now with near complete involvement of the L5-S1 vertebral bodies. Prevertebral edema is noted at this level. Progressive disc desiccation and height loss at L5-S1. Mild marrow edema along the superior endplate of S2. Fatty degenerative endplate changes are noted at L3-L4 and L4-L5. The conus medullaris and cauda equina nerve roots are unremarkable; the conus terminates at the level of T12-L1. L1-L2: Trace disc bulge. The spinal canal is patent. Stable mild narrowing of the neural foramen. L2-L3: Disc bulge and facet arthropathy without significant spinal canal stenosis. Small bilateral foraminal disc protrusions with stable mild to moderate bilateral neural foraminal stenosis. L3-L4: Disc bulge and osteophytic ridging with left foraminal annular fissure. Facet arthropathy with ligamentum flavum redundancy. The spinal canal is patent. There is redemonstrated mild to moderate left and moderate right neural foraminal stenosis. L4-L5: Disc bulge and osteophytic ridging which is eccentric to the right. Central and left foraminal annular fissure noted. Advanced facet arthropathy with ligamentum flavum redundancy. There is narrowing of lateral recesses. The central canal is otherwise patent. Stable moderate narrowing of the neural foramen. L5-S1: Left hemilaminectomy. Previously visualized large disc extrusion is no longer present. There is persistent disc bulge and osteophytic ridging with facet arthropathy. Narrowing of the left greater than right lateral recess with mass effect on the descending left greater than right S1 nerve roots. Severe left greater the right neural foraminal stenosis with exiting nerve root compression which appears increased compared to prior. Right-sided extracanalicular synovial cyst. MR/MR lumbar spine wo con IMPRESSION: Interval left hemilaminectomy at L5-S1 with resolution of previously visualized large disc extrusion. There is a persistent small disc bulge and osteophytic ridging at L5-S1 contributing to narrowing of the lateral recesses and mass effect on the left greater than right descending S1 nerve roots. Severe left greater than right neural foraminal stenosis at L5-S1 appears progressed compared to prior. Associated exiting nerve root impingement bilaterally. There is increased exuberant edema throughout the L5 and S1 vertebral bodies extending into the bilateral L5 pedicles and posterior elements. While this may be on the basis of progressive degenerative change, given extensive edema and prevertebral edema, correlation with laboratory values is recommended to exclude an underlying infection/discitis-osteomyelitis. Additional degenerative changes as described above appear stable compared to the prior examination. Findings to be called to the ordering clinician by a [facility] Physician Kier Tender.
== END 2023-08-27 19:51 | disposition home or self-care (01) ==
LOC: HO.MRI 19:50
PROVIDERS: PCP Nurse Practitioner Primary Care; Visit Provider Physician Assistant
DX: M54.16 Radiculopathy, lumbar region (principal)
CPT/HCPCS: 72148

== ENCOUNTER 2023-09-15 14:47 | Outpatient (AMB) | payer MEDICAID, SELFPAY ==
--- NOTE | 2023-09-15 14:49 | A.SPINEOV_ITS ---
Intake Visit Reasons: discuss MRI results Intake Note: Mr. Markham is here today to F/u on MRI results. Insurance Verification Representative Required: Yes Insurance Verification Representative Name: Tablet Allergies shellfish derived Allergy (Severe, Verified 09/15/23 14:52) Anaphylaxis lodine Allergy (Unknown, Uncoded 12/23/22 12:59) Unknown Assessment & Plan Assessment & Plan (1) Bone marrow edema: Code(s): R93.7 - Abnormal findings on diagnostic imaging of other parts of musculoskeletal system Category: Medical Plan: Van comes in today for a subsequent follow-up visit after having his repeat MRI completed following continued pain after an L5-S1 microdiskectomy which was completed in December of last year. There was some concern during his last visit that he had a recurrent disc herniation. Thankfully, this does not appear to be the case. We reviewed his MRI together. His disc herniation appears to have largely resolved as a result of his surgery. Unfortunately, he now has nearly complete loss of disc height at L5-S1, and has essentially hifq-rx-tjpv between these two vertebral bodies. Importantly, Van does state that overall his pain resolved from a 9/10 to a 4/10 since his surgery in December. However he has not been able to get his pain to improve any further despite numerous interventions including prescription pain medication regimens, qmrh-jcx-cavrkse medications, and physical therapy. Unfortunately, he does appear to have quite a bit of edema in the vertebral bodies of L5 and S1, and also has some in the vertebral body of L4. This extends modestly into the posterior elements as well. The radiology read [place] mmended correlation with laboratory values to rule out diskitis/osteomyelitis. I do not believe the patient has symptoms that would be concurrent with the osteomyelitis diagnosis, as this patient's are typically in severe pain. However, I will order laboratory studies to rule these out as possible etiologies. After Van as his lab work completed I would like him to follow-up with Dr. Glynn to discuss the potential for any further surgical interventions. If there are no further surgical interventions that Dr. Glynn is willing to offer him, I would recommend he be referred back to pain management. Total amount of time spent in this visit was 20 minutes in discussion of symptoms, MRI imaging results and subsequent plan of care. Frederic Glynn MD,PhD [facility] Plan . Orders: Orders Complete Blood Count Auto Diff Today R93.7 - Abnormal findings on diagnostic imaging of other parts of musculoskeletal system Erythrocyte Sedimentation Rate Today R93.7 - Abnormal findings on diagnostic imaging of other parts of musculoskeletal system CRP High Sensitivity Today R93.7 - Abnormal findings on diagnostic imaging of other parts of musculoskeletal system Coding Level of Care Code Est Pt Level 3 (14055) Diagnoses Bone marrow edema R93.7
== END 2023-09-15 15:06 | disposition home or self-care (01) ==
PROVIDERS: PCP Nurse Practitioner Primary Care; Visit Provider Physician Assistant
DX: R93.7 Abnormal findings on diagnostic imaging of other parts of musculoskeletal system (principal)
CPT/HCPCS: 99213

== ENCOUNTER → 2023-09-15 14:47 | Outpatient (BNVA) | payer MEDICAID, SELFPAY | PROVIDERS: PCP Nurse Practitioner Primary Care; Visit Provider Physician Assistant | DX: R93.7 Abnormal findings on diagnostic imaging of other parts of musculoskeletal system (principal) | CPT/HCPCS: 99212 ==

== ENCOUNTER 2023-09-18 14:06 | Outpatient (REF) | payer MEDICAID, SELFPAY ==
[2023-09-18 14:27] LABS: MANUAL DIFF FLAG NO
[2023-09-18 14:53] LABS: Basophils Percent Auto 0.4 % (0-2); Eosinophils Absolute Auto 0.1 X10*3/uL (0.0-0.4); Eosinophils Percent Auto 1.1 % (0-4); Hematocrit 39.8 % (42.0-52.0); Hemoglobin 13.6 g/dl (14.0-18.0); Imm Gran Abs Auto 0.03 X10*3/uL (0.00-0.03); Imm Gran Pct Auto 0.3 % (0.0-0.4); Lymphocytes Absolute Auto 3.2 X10*3/uL (1.2-4.9); Lymphocytes Percent Auto 28.9 % (20-40); Mean Corpuscular HGB Conc 34.2 g/dl (31.0-36.0); Mean Corpuscular Volume 93.6 fL (80.0-98.0); Mean Platelet Volume 10.2 fL (9.4-12.4); Monocytes Absolute Auto 0.7 X10*3/uL (0.1-1.2); Monocytes Percent Auto 6.2 % (2-11); Neutrophils Absolute Auto 6.9 x10*3/uL (2.0-8.3); Neutrophils Percent Auto 63.1 % (45-73); Platelet Count 158 X10*3/uL (160-400); Red Blood Count 4.25 X10*6/uL (4.60-5.80); Red Cell Distribution Width 12.9 % (11.0-16.0)
[2023-09-18 15:47] LABS: Erythrocyte Sedimentation Rate 5 MM/HR (0-15)
[2023-09-22 21:39] LABS: CRP High Sensitivity 0.8 mg/L
== END 2023-09-18 14:07 | disposition home or self-care (01) ==
LOC: HO.LAB 14:06
PROVIDERS: Visit Provider Physician Assistant
DX: R93.7 Abnormal findings on diagnostic imaging of other parts of musculoskeletal system (principal)
CPT/HCPCS: 36415; 85025; 85652; 86141

== ENCOUNTER 2023-10-09 13:05 | Outpatient (AMB) | payer MEDICAID, SELFPAY ==
--- NOTE | 2023-10-09 13:56 | A.SPINEOV_ITS ---
Intake Visit Reasons: lab f/u & discuss sx Intake Note: Mr. Rashi Mendoza is here today to discuss surgery. Social Research Assistant Required: No Allergies shellfish derived Allergy (Severe, Verified 09/15/23 14:52) Anaphylaxis lodine Allergy (Unknown, Uncoded 12/23/22 12:59) Unknown Assessment & Plan Assessment & Plan (1) Status post lumbar spine surgery for decompression of spinal cord: Code(s): Z98.890 - Other specified postprocedural states Category: Surgical (2) Cervical myelopathy: Code(s): G95.9 - Disease of spinal cord, unspecified Category: Medical Plan Dear colleague, On October 09, 2023 I saw for follow-up Van Fernández. He is status post L5-S1 diskectomy to remove a large extruded disc herniation in December of this year. The radicular pain improved greatly but he still has significant neurological deficits with weakness and balance problems. A repeat MRI shows a near collapse disc L5-S1 and edema of the L5 and S1 vertebral bodies. In addition there is moderate degenerative disc disease of L4-5. We obtain infectious parameters which are negative. Clinically, the patient is not suffering from a osteomyelitis. However on exam I did find a Anna reflex on the right side and a discrepancy between upper extremity and lower extremity reflexes. Therefore I would like to order an MRI of the cervical spine to rule out spinal cord compression. I made him aware that a lumbar fusion for back pain has about 60% success rate and therefore we need to be careful in considering this in his case. He will return to my clinic after the MRI of the cervical spine is done. Freddy Glynn MD, PhD Spine Fellowship Trained Neurosurgeon Director, [facility] Orders: Orders MR cervical spine wo con Today G95.9 - Disease of spinal cord, unspecified Coding Level of Care Code Global (28137) Diagnoses Status post lumbar spine surgery for decompression of spinal cord Z98.890 Cervical myelopathy G95.9
== END 2023-10-09 14:51 | disposition home or self-care (01) ==
PROVIDERS: PCP Nurse Practitioner Primary Care; Visit Provider Neurological Surgery
DX: G95.9 Disease of spinal cord, unspecified (principal); Z98.890 Other specified postprocedural states
CPT/HCPCS: 99214

== ENCOUNTER → 2023-10-09 13:05 | Outpatient (BNVA) | payer MEDICAID, SELFPAY | PROVIDERS: PCP Nurse Practitioner Primary Care; Visit Provider Neurological Surgery | DX: G95.9 Disease of spinal cord, unspecified (principal); Z98.890 Other specified postprocedural states | CPT/HCPCS: 99212 ==

== ENCOUNTER 2023-11-04 12:43 | Outpatient (REF) | payer MEDICAID, SELFPAY ==
--- NOTE | ~2023-11-04 | MR_ITS ---
MR CERVICAL SPINE WITHOUT CONTRAST CLINICAL INFORMATION: Disease of the spinal cord. The patient describes bilateral pain and tingling sensation in all extremities for 3 years. COMPARISON: None available. TECHNIQUE: MRI of the cervical spine was obtained using routine sequences without contrast. FINDINGS: There is retrosubluxation of C2 on C3 and C3 on C4. The vertebral body heights are maintained. There is severe disc volume loss at C5-C6 and there is moderate disc volume loss at C2-C3, C3-C4, and C6-C7. Modic type I marrow signal changes within the C5, C6, and C7 vertebral bodies. No additional bone marrow edema. No acute fractures. The craniocervical junction is unremarkable. The partially imaged intracranial compartment is unremarkable. Cervical arterial flow voids are maintained. There are no significant extraspinal soft tissue findings. C2-C3: Diffuse disc osteophyte complex and ligamentum flavum thickening result in moderate central canal stenosis and flattening of the cord. Uncovertebral joint hypertrophy and hypertrophic facet arthropathy result in mild to moderate right and mild left foraminal stenosis. C3-C4: A broad-based left paracentral disc protrusion and ligamentum flavum thickening result in severe central canal stenosis and significant flattening of the cervical cord. Uncovertebral joint spurring and hypertrophic facet arthropathy result in mild bilateral foraminal encroachment. C4-C5: A central disc protrusion and ligamentum flavum thickening result in moderate central canal stenosis and flattening of the cord. Uncovertebral joint hypertrophy and hypertrophic facet arthropathy result in mild bilateral foraminal encroachment. C5-C6: A broad-based central disc protrusion and ligamentum flavum thickening result in severe central canal stenosis and significant mass effect on the cervical spinal cord. Advanced uncovertebral joint hypertrophy and hypertrophic facet arthropathy result in severe bilateral foraminal stenosis. C6-C7: A broad-based central disc protrusion and ligamentum flavum thickening result in severe central canal stenosis and significant mass effect on the cervical spinal cord. Advanced uncovertebral joint hypertrophy and hypertrophic facet arthropathy result in severe bilateral foraminal stenosis. C7-T1: Posterior disc contour is normal and there is no central canal stenosis nor foraminal stenosis. MR/MR cervical spine wo con IMPRESSION: * Advanced cervical spondylosis with spondylitic changes resulting in severe central canal stenosis and significant mass effect on the cervical spinal cord at C3-C4, C5-C6, and C6-C7. Possible intramedullary T2 signal changes within the cervical cord at C5-C6 and C6-C7 that can be correlated for clinical signs of compressive myelopathy, not well assessed due to the degree of artifact. * Spondylitic changes result in moderate central canal stenosis and slight flattening of the ventral cord at C2-C3 and C4-C5 as well as severe bilateral foraminal stenosis at C5-C6 and C6-C7. Modic type I marrow signal changes within the C5, C6, and C7 vertebral bodies.
== END 2023-11-04 12:44 | disposition home or self-care (01) ==
LOC: HO.MRI 12:43
PROVIDERS: PCP Nurse Practitioner Primary Care; Visit Provider Neurological Surgery
DX: G95.9 Disease of spinal cord, unspecified (principal)
CPT/HCPCS: 72141

== ENCOUNTER 2023-11-27 14:51 | Outpatient (AMB) | payer MEDICAID, SELFPAY ==
--- NOTE | 2023-11-27 14:55 | HO.SPINEOV ---
Intake Visit Reasons: MRI f/u pt Intake Note: Mr. Markham is here today to F/u on MRI. Finisher Operator Required: Yes Finisher Operator Name: Karis Arora Allergies shellfish derived Allergy (Severe, Verified 11/27/23 15:05) Anaphylaxis lodine Allergy (Unknown, Uncoded 12/23/22 12:59) Unknown Assessment & Plan Assessment & Plan (1) Cervical myelopathy: Code(s): G95.9 - Disease of spinal cord, unspecified Category: Medical Plan Mr Markham is back in the office today to review his MRI. Please see Dr. Glynn last note for the specifics of his problem. There was a suspicion of myelopathy and he underwent a cervical MRI here at [facility] and this shows multilevel degenerative disc disease with severe spinal cord compression at C5-6 and C6-7 with cord signal changes. There is also to a lesser degree moderate stenosis at C3-4. Given the diffuse numbness and feelings of weakness in his arms and legs, with the hyperreflexia all suggesting progressive myelopathy we will plan for ACDF C5-6 and C6-7. Dr. Glynn and I both met with him kind of reviewed the procedure, risks and benefits. We emphasized the fact that the patient's symptoms may not get better after surgery, and that the ultimate goal of surgery would be to prevent him from getting worse and needing to be in a wheelchair or being unable to walk or move his arms again. We do however expect he may see some degree of improvement hopefully. Pt was given risk and benefits of surgery including but not limited to infection, hematoma , nerve injury,durotomy, weakness,bowel/bladder injury, persistent pain, dysphagia, vocal hoarseness, need for future surgery on the cervical spine as well as the option to continue with conservative treatment and patient wishes to proceed with surgery. Pt is aware they should stop their motrin, aspirin 7 days prior to surgery. All questions were answered to the best of our ability. If there is anything about this patients medical history that we have overlooked or concerns you have about us proceeding with surgery we would appreciate any input you can offer. Total amount of time spent in this visit was 20 minutes in discussion of symptoms, cervical MRI at [facility] imaging results and subsequent plan of care Robert Glynn MD,PhD [facility] Coding Level of Care Code Est Pt Level 3 (66129) Diagnoses Cervical myelopathy G95.9
== END 2023-11-27 15:47 | disposition home or self-care (01) ==
PROVIDERS: PCP Nurse Practitioner Primary Care; Visit Provider Physician Assistant
DX: G95.9 Disease of spinal cord, unspecified (principal)
CPT/HCPCS: 99213

== ENCOUNTER → 2023-11-27 14:51 | Outpatient (BNVA) | payer MEDICAID, SELFPAY | PROVIDERS: PCP Nurse Practitioner Primary Care; Visit Provider Physician Assistant | DX: G95.9 Disease of spinal cord, unspecified (principal) | CPT/HCPCS: 99212 ==

== ENCOUNTER 2023-12-11 12:26 | Outpatient (REF) | payer MEDICAID, SELFPAY ==
[2023-12-11 13:06] LABS: MANUAL DIFF FLAG NO
[2023-12-11 14:14] LABS: Basophils Percent Auto 0.4 % (0-2); Eosinophils Absolute Auto 0.1 X10*3/uL (0.0-0.4); Eosinophils Percent Auto 1.4 % (0-4); Hematocrit 42.6 % (42.0-52.0); Hemoglobin 14.6 g/dl (14.0-18.0); Imm Gran Abs Auto 0.01 X10*3/uL (0.00-0.03); Imm Gran Pct Auto 0.1 % (0.0-0.4); Lymphocytes Absolute Auto 3.8 X10*3/uL (1.2-4.9); Lymphocytes Percent Auto 41.6 % (20-40); Mean Corpuscular HGB Conc 34.3 g/dl (31.0-36.0); Mean Corpuscular Hemoglobin 31.5 pg (27.0-33.0); Mean Platelet Volume 10.4 fL (9.4-12.4); Monocytes Absolute Auto 0.5 X10*3/uL (0.1-1.2); Monocytes Percent Auto 5.5 % (2-11); Neutrophils Absolute Auto 4.7 x10*3/uL (2.0-8.3); Platelet Count 145 X10*3/uL (160-400); Red Blood Count 4.63 X10*6/uL (4.60-5.80); Red Cell Distribution Width 12.7 % (11.0-16.0); White Blood Count 9.2 X10*3/uL (4.8-10.8)
[2023-12-11 14:33] LABS: Estimated Average Glucose 111 mg/dL; Hemoglobin A1c % 5.5 % (<6.0)
[2023-12-11 14:46] LABS: Alanine Aminotransferase 11 U/L (0-40); Albumin Level 4.3 g/dL (3.5-5.0); Alkaline Phosphatase 108 U/L (39-117); Anion Gap 13 (12-20); Aspartate Amino Transferase 18 U/L (5-37); Bilirubin Total 0.7 mg/dL (0.0-1.0); Blood Urea Nitrogen 14 mg/dL (9-16); Calcium 9.8 mg/dL (8.4-10.2); Carbon Dioxide 25 mmol/L (22-29); Chloride 108 mmol/L (96-108); Cholesterol 130 mg/dL (<200); Estimated Glomerular Filt Rate > 60; Glucose Random 100 mg/dL (60-115); HDL Cholesterol 47 mg/dL (>40); LDL Cholesterol Calculated 71 mg/dL (<100); Sodium 142 mmol/L (135-145); Total Protein 7.9 g/dL (6.5-8.0); Triglycerides 60 mg/dL (<150)
[2023-12-11 14:55] LABS: TSH reflex Free T4 0.62 uIU/mL (0.32-4.0)
[2023-12-14 08:12] LABS: HBS Num1 34.09 mIU/mL (0-7.99); HBc Num1 0.51 S/CO (0.00-0.79); Hepatitis B Core Antibody Nonreactive (Nonreactive); Hepatitis B Surface Antigen Negative (Negative); Syphilis Screen Nonreactive (Nonreactive); ~Hepatitis B Surface Antibody REACTIVE (Nonreactive)
[2023-12-15 09:18] LABS: HCV Log PCR <1.18 NOT DETECTED Log IU/mL (NOT DETECTED); HepC Viral Load <15 NOT DETECTED IU/mL (NOT DETECTED)
[2023-12-15 09:38] LABS: HIV RNA PCR Qn Copies NOT DETECTED copies/mL (NOT DETECTED); HIV RNA PCR Qn Log Copies NOT DETECTED (NOT DETECTED)
[2023-12-16 23:33] LABS: Absolute CD3 Count 3008 cells/uL (840-3060); Absolute CD4 Count 1726 cells/uL (490-1740); Absolute CD8 Count 1319 cells/uL (180-1170); Absolute Lymphocytes 3826 cells/uL (850-3900); CD4 CD8 Ratio 1.31 (0.86-5.00); Percent CD3 Cells 79 % (57-85); Percent CD4 Cells 45 % (30-61); Percent CD8 Cells 34 % (12-42)
== END 2023-12-11 12:27 | disposition home or self-care (01) ==
LOC: HO.LAB 12:26
PROVIDERS: Absent Provider Student in an Organized Health Care Education/Training Program; PCP Student in an Organized Health Care Education/Training Program; Visit Provider Internal Medicine
DX: Z00.00 Encounter for general adult medical examination without abnormal findings (principal); B20 Human immunodeficiency virus [HIV] disease
CPT/HCPCS: 36415; 80053; 80061; 83036; 84443; 85025; 86359; 86360; 86704; 86706; 86780; 87340; 87522; 87536

== ENCOUNTER 2023-12-13 12:50 | Outpatient (REF) | payer MEDICAID, SELFPAY ==
[2023-12-14 15:19] LABS: CT PCR NOT DETECTED (Not Detect.); NG PCR NOT DETECTED (Not Detect.)
== END 2023-12-13 12:51 | disposition home or self-care (01) ==
LOC: HO.LNP 12:50
PROVIDERS: Visit Provider Student in an Organized Health Care Education/Training Program
DX: Z00.00 Encounter for general adult medical examination without abnormal findings (principal)
CPT/HCPCS: 87491; 87591

== ENCOUNTER 2024-01-13 08:01 | Day surgery (SDC) | payer MEDICAID, SELFPAY ==
[2023-12-30 10:39] VITALS: BP 109/68; PULSE 84; RESP 16; O2SAT 96; BMI 22.0
[2024-01-13] VITALS (7 sets, daily range): BP systolic 109–130; BP diastolic 48–93; PULSE 50–56; RESP 12–16; TEMP 36.1–36.3; O2SAT 97–99
[2024-01-13] MEDS: Gabapentin 300 MG CAPSULE PO (08:34)
[2024-01-13] MEDS: Lactated Ringers 1,000 ML 100 ML IVCONT (08:34)
[2024-01-13] MEDS: methocarbamoL 750 MG TABLET PO (08:34)
--- NOTE | 2024-01-13 11:22 | MHC.SHP ---
Pre-Procedural Eval Section A - 24 Hr Update-Section A only Date of Service: 01/13/24 The patient is an INPATIENT: No Section B - Complete if H&P > 30 days Chief Complaint: Disease of spinal cord, unspecified Allergies: Allergies Allergy/AdvReac Type Severity Reaction Status Date / Time shellfish derived Allergy Severe Anaphylaxis Verified 11/27/23 15:05 lodine Allergy Unknown Unknown Uncoded 12/23/22 12:59 Review of Systems Sugical H&P ROS: Negative: Constitution, Cardiovascular, Respiratory, Neurological, Psychiatric, Hem-Onc, Allergic/Immunologic, Gastrointestinal, Genitourinary, Musculoskeletal, Integumentary, Endocrine and Eyes/Ears/Nose/Throat Exam Surgical H&P Exam: Normal: HEENT, Normal: Heart, Normal: Lungs, Normal: Extremities, Normal: Abdomen and Normal: Skin and Significant Findings: Neurological (Dexterity loss, weakness) Plan Diagnosis/Plan: Unchanged I have reviewed the history and physical and performed a pertinent physical examination on my patient. No changes have occurred unless specified. C5-6 C6-7 anterior diskectomy and fusion Time Spent With Patient Time: Total time managing care of this patient today 5 ____ minutes.
--- NOTE | 2024-01-13 11:25 | P.CONAN_ITS ---
Documented by User: Sahara Tyson NP 01/12/24 12:02 HPI - Anesthesia Eval Consult details Narrative: 48yo M for C5-6,C6-7 Ant Cerv Discectomy w/ fusion PAT eval 12/30/[address] Yi Suboxone daily 20mg daily PMFSH Active Problems Active Problems: All Active Problems Cervical myelopathy (Acute) Bone marrow edema (Acute) Lumbar radiculopathy (Acute) Status post lumbar spine surgery for decompression of spinal cord (Acute) Lumbar disc herniation with radiculopathy (Acute) Varicose veins of right lower extremity with inflammation (Acute) PAD (peripheral artery disease) (Acute) Past Medical History Medical History (Updated 12/30/23 @ 10:27 by Karen Longo RN) Arthritis Back pain Anxiety Depression Numbness Dizziness Peripheral neuropathy Ambulates with cane Spinal stenosis, lumbosacral region Lumbar disc herniation Spinal stenosis of lumbar region with neurogenic claudication Opioid dependence HIV (human immunodeficiency virus infection) Hepatitis C Family History Family history of problems with anesthesia: No Surgical History Surgical History (Updated 12/30/23 @ 10:35 by Karen Longo RN) History of back surgery Hx of exploratory laparotomy History of Problems with Anesthesia: No Social History Social History (Updated 12/23/22 @ 14:48 by Margie Sanchez RN) Household Members: Spouse Housing: Apartment Are you a primary certified caregiver to a significant other at home: No Do you presently have 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 If so, by whom?: No Are you DNR?: No Advance Directives: No Advance Directives Information Provided: Yes Advance Directives on File: No Recently lost weight without trying: No Eating poorly because of decreased appetite: No Nutrition Risks: No Nutritional Risk Poor oral hygiene: Yes (no teeth on the bottom) Meds Allergies Allergy/AdvReac Type Severity Reaction Status Date / Time shellfish derived Allergy Severe Anaphylaxis Verified 11/27/23 15:05 lodine Allergy Unknown Unknown Uncoded 12/23/22 12:59 Home Medications ?Medication ?Instructions ?Recorded ?Confirmed ?Last Taken ?Type abacavir 600 mg-dolutegravir 50 1 tab PO BEDTIME 11/15/20 12/30/23 Unknown History mg-lamivudine 300 mg tablet (Triumeq) emollient combination no.114 appl topical DAILY 11/15/20 12/01/22 Unknown History (Eucerin Advanced Repair Foot topical cream) buprenorphine 4 mg-naloxone 1 mg 4 mg sublingual BEDTIME 12/23/22 12/30/23 Unknown History sublingual film (Suboxone) buprenorphine 8 mg-naloxone 2 mg 8 mg sublingual .AM AND AFTERNOON 12/23/22 12/30/23 01/13/24 History sublingual film (Suboxone) gabapentin 800 mg tablet 800 mg PO TID 12/23/22 12/30/23 Unknown History Exam Height,Weight and Vital Signs: Height 6 ft 2 in Weight 77.564 kg Last Vital Signs Pulse 84 12/30/23 10:39 Resp 16 12/30/23 10:39 BP 109/68 12/30/23 10:39 Pulse Ox 96 12/30/23 10:39 O2 Del Method Room Air 12/30/23 10:39 Pertinent Lab Results Pertinent Lab Results: Laboratory Tests 12/11/23 13:03 WBC 9.2 Hgb 14.6 Hct 42.6 Plt Count 145 L Sodium 142 Potassium 4.0 Chloride 108 Carbon Dioxide 25 BUN 14 Creatinine 0.77 Narrative Narrative: EKG 12/2022 Vent. Rate : 065 BPM ? ? Atrial Rate : 065 BPM ?? P-R Int : 198 ms? QRS Dur : 090 ms ? ? QT Int : 366 ms ? ? ? P-R-T Axes : 080 031 034 degrees ?? QTc Int : 380 ms ? Normal sinus rhythm Normal ECG No previous ECGs available ECHO 2020 Conclusions: -? Essentially normal study? ?? Assessment and Plan Assessment Anesthesia Assessment: Chart Reviewed Final Anesthetic Review Family History of Problems with Anesthesia: No History of Problems with Anesthesia: No Documented by User: Connie Yi, 01/13/24 11:30 [facility] Past Medical History Medical History (Updated 12/30/23 @ 10:27 by Karen Longo, PER) Arthritis Back pain Anxiety Depression Numbness Dizziness Peripheral neuropathy Ambulates with cane Spinal stenosis, lumbosacral region Lumbar disc herniation Spinal stenosis of lumbar region with neurogenic claudication Opioid dependence HIV (human immunodeficiency virus infection) Hepatitis C Family History Family history of problems with anesthesia: No Surgical History Surgical History (Updated 12/30/23 @ 10:35 by Karen Longo, RN) History of back surgery Hx of exploratory laparotomy History of Problems with Anesthesia: No Social History Social History (Updated 12/23/22 @ 14:48 by Margie Sanchez RN) Household Members: Spouse Housing: Apartment Are you a primary certified caregiver to a significant other at home: No Do you presently have 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 If so, by whom?: No Are you DNR?: No Advance Directives: No Advance Directives Information Provided: Yes Advance Directives on File: No Recently lost weight without trying: No Eating poorly because of decreased appetite: No Nutrition Risks: No Nutritional Risk Poor oral hygiene: Yes (no teeth on the bottom) Meds Allergies Allergy/AdvReac Type Severity Reaction Status Date / Time shellfish derived Allergy Severe Anaphylaxis Verified 11/27/23 15:05 lodine Allergy Unknown Unknown Uncoded 12/23/22 12:59 Home Medications ?Medication ?Instructions ?Recorded ?Confirmed ?Last Taken ?Type abacavir 600 mg-dolutegravir 50 1 tab PO BEDTIME 11/15/20 12/30/23 Unknown History mg-lamivudine 300 mg tablet (Triumeq) emollient combination no.114 appl topical DAILY 11/15/20 12/01/22 Unknown History (Eucerin Advanced Repair Foot topical cream) buprenorphine 4 mg-naloxone 1 mg 4 mg sublingual BEDTIME 12/23/22 12/30/23 Unknown History sublingual film (Suboxone) buprenorphine 8 mg-naloxone 2 mg 8 mg sublingual .AM AND AFTERNOON 12/23/22 12/30/23 01/13/24 History sublingual film (Suboxone) gabapentin 800 mg tablet 800 mg PO TID 12/23/22 12/30/23 Unknown History Exam Exam Date and Time: 01/13/24 1128 Height,Weight and Vital Signs: Height 6 ft 2 in Weight 77.564 kg Last Vital Signs Pulse 84 12/30/23 10:39 Resp 16 12/30/23 10:39 BP 109/68 12/30/23 10:39 Pulse Ox 96 12/30/23 10:39 O2 Del Method Room Air 12/30/23 10:39 Vital Signs Pulse Rate 84 12/30/23 10:39 Respiratory Rate 16 12/30/23 10:39 Blood Pressure 109/68 12/30/23 10:39 Pulse Oximetry 96 12/30/23 10:39 Oxygen Delivery Method Room Air 12/30/23 10:39 Pulse Rate 84 12/30/23 10:39 Respiratory Rate 16 12/30/23 10:39 Blood Pressure 109/68 12/30/23 10:39 Pulse Oximetry 96 12/30/23 10:39 Oxygen Delivery Method Room Air 12/30/23 10:39 Airway Mallampati Class: I TM Dist: >3cm Neck ROM: Full Loose/Missing/Broken Teeth: No (patient denies any loose or broken teeth) Heart: S1S2 Lungs: CTAB Assessment and Plan Assessment Anesthesia Assessment: Anesthesia Plan Discussed and Chart Reviewed Final Anesthetic Review Family History of Problems with Anesthesia: No History of Problems with Anesthesia: No NPO: Yes ASA Class: III Final Preanesthetic Review: No Changes in Pt Med Stat, Meds/Allgs Chart Reviewed, Consent Obtained/Reviewed and Anes Risks/Benef Reviewed Patient Risk: Intermediate Procedure Risk: Intermediate Anesthetic Plan Anesthetic Plan: GA and Agree w/ Assess. and Plan Disposition: Standard PACU
--- NOTE | 2024-01-13 13:41 | P.OP_ITS ---
Operative Note Operative Note Date of Service: 01/13/24 Narrative: Preoperative Diagnosis: Progressive cervical myelopathy Procedure: C5-C6, C6-7 Anterior discectomy, arthrodesis and implantation cage ; C5-C7 anterior instrumentation ; local autograft; microscope Informed Consent was obtained for this operation. I have explained the nature, purpose and benefits of the operation. I have discussed the risks and benefit of the operation including possible complications or adverse events with patient/family. Alternative(s) were discussed with the patient with their relative benefits and risks as well as the consequences of not accepting the operation were included in obtaining consent. Surgeon: RADHA TRACY MD, PHD Procedure Assisted By: ARNIE Ritchie Description of Procedure: This 48-year-old male suffering from progressive cervical myelopathy due to severe spinal cord compression at C5-6 and C6-7. He was offered an anterior diskectomy and fusion of these levels. The procedure complications were explained. The patient was consented. The patient was brought to the operating room and endotracheally intubated. The patient was put in supine position with slight extension of the neck. Prep and drape was done followed by timeout. A mid cervical incision was made followed by opening of the platysma. The prevertebral fascia was reached following the natural planes while the physician clinical services assistant provided manual retraction. The prevertebral fascia was opened to expose the disc space. A spinal needle was placed in the disk space to confirm the correct level with xray. The longus colli muscles were released bilaterally and a self retaining retractor was inserted. An initial diskectomy was done of C5-6 and C6-7 towards the posterior annulus. Two Rapidan pins were placed in the C5 and C6 vertebral bodies and distraction was give over the interspace. The discectomy was completed toward the posterior annulus of the disc. The microscope was brought in. The remainder of the discectomy was completed. The hypertrophied posterior ligament was opened and resected to expose the underlying dura. Osteophytes were resected from the body of C5-C6 and saved for autograft. Bilateral foraminotomies were done. This relieved the significant spinal cord compression at this level. The endplates were prepared after which a 6 mm cage filled with autograft was inserted into the disc space. A separate attached plate was locked down with 2 x 14 mm screws as anterior instrumentation. Then attention was turned to the C6-7 level. The Rapidan pin was placed in the body of C7 and distraction was giving over the interspace. The diskectomy was completed towards the PLL. Again, the PLL was significantly hypertrophied and was opened with a 1. And 2 Kerrison to expose underlying dura. Large osteophytes were removed from the body of C6-C7 to decompress the spinal cord and saved autograft. Bilateral foraminotomies were done. The endplates were prepared after which a 6 mm cage was inserted into the disc space. A separate attached plate was locked down with 2 x 14 mm screws for anterior instrumentation. Final x-rays in AP and lateral projection showed a satisfactory position of the implants and anterior instrumentation. The physician clinical services assistant took over. The Rapidan pin was removed. Hemostasis was done. He closed the incision in 2 layers with a 3-0 Vicryl. Steri-Strips used to approximate incision. An OpSite with Tegaderm was used to cover the incision. All sponge and needle counts were correct. Patient was extubated and transported in stable is to recovery room. Anesthesia: General Estimated Blood Loss (ml): 20 Duration of Surgery: 90 minutes Postoperative Plan: Discharge home Complications: None
--- NOTE | 2024-01-13 13:52 | PM.DS ---
DS: Providers Provider Date of Service: 01/13/24 Primary care physician: Madyson Elliott MD DS: Summary Time Attestation Discharge Coordination Time (in mins): 15 Quality: Safe Use of Opioids Does Pt have an Active Cancer Diagnosis on the Problem List?: No Quality: Stroke Does the patient have a stroke diagnosis?: No Physical Exam Vital Signs: Vital Signs: Last Vital Signs Pulse 84 12/30/23 10:39 Resp 16 12/30/23 10:39 BP 109/68 12/30/23 10:39 Pulse Ox 96 12/30/23 10:39 O2 Del Method Room Air 12/30/23 10:39 BMI result Body Mass Index 22.0 Discharge Plan Discharge Patient Disposition: Home, Self-Care Referrals: Madyson Jarrett MD [Primary Care Provider] - 1 Week Discharge Medications: New oxycodone 5 mg tablet 5 mg PO Q8H PRN (Reason: severe pain (scale score 7-10)) Qty: 20 0RF Rx Instructions: Partial Fill upon patient request. Continued gabapentin 800 mg tablet 800 mg PO TID Eucerin Advanced Repair Foot Cream topical DAILY Triumeq 600-50-300 mg tablet 1 tab PO BEDTIME Held buprenorphine-naloxone [Suboxone] 8-2 mg film 8 mg sublingual .AM AND AFTERNOON Hold Instructions: Resume on 02/12/24. Patient reports he is not taking this med buprenorphine-naloxone [Suboxone] 4-1 mg film 4 mg sublingual BEDTIME Hold Instructions: Resume on 02/12/24. Patient reports he is not taking this med Discharge Orders: Discharge Order (Routine); Ordered 01/13/24 Ordered By: Frederic Brothers Diet: Advance to usual diet Activity on Discharge: As tolerated Activity Restrictions/Additional Instructions: After your spinal surgery we ask you to observe the following restrictions/guidelines: Activity: It is normal to feel some discomfort as you increase your activity, but that will improve with time. We ask you avoid heavy lifting or acitivities that cause pain. As a general rule, 8lbs is a safe limit for lifting right after surgery. Walk as much as you feel comfortable but not to exhaustion. You will feel extra tired the first few days after surgery. Stay well hydrated. It is OK to walk up and down stairs You may return to driving when you are off narcotics (such as vicodin, oxycodone, dilaudid, etc), and you are back to normal functional capacity. If you have any concerns please check with office before driving. Return to work is specific to each patient and each surgery, so please speak with your doctor/PA at first follow up. Please bring paperwork such as FMLA at that time if you need it filled out. Medications: We recommend you take 1,000mg Tylenol every 8 hours for the first few weeks after surgery, if you do not have any liver issues and can tolerate this medication. Do not exceed 4,000mg daily. We will give you a short supply of narcotics after surgery (usually one weeks worth). If you need more please call the office but do not use more than prescribed. You will need to give our office 48 hours notice if you need narcotics refilled and we do not fill narcotics on weekends or evenings. If you are on a narcotic, it is a good idea to take a stool softener such as colace or senna to avoid constipation If you take blood thinner such as aspirin, Plavix, Coumadin, Effient, Eliquis etc for conditions such as Afib, DVT, Pulmonary embolus, coronary disease, stents etc please speak with your surgeon about specific details as to when you can resume these medications. You can resume NSAIDs on post op day 1 (eg: Motrin, Naproxen, etc). Follow up: Please call the office, , after surgery to arrange a 3 week follow up for wound check. Wound Care: You may remove your dressing on the first day after surgery. ?You may ?leave open to air. Please do not remove the steri strips underneath. they will fall off on their own in one week. IT IS NORMAL FOR THE WOUND TO OOZE OR BE BLOODY FOR A FEW DAYS AFTER SURGERY. ?IF THIS HAPPENS JUST PLACE NEW DRESSING OVER IT TO AVOID STAINING CLOTHES. You may shower on post op day # 1 We ask that you do not let the water soak the wound. If it does get wet, just towel dry lightly. Please do not scrub your incision or place any type of chemical/ointment on the wound. No tub baths, pools or jacuzzis for one month. If you have any leaking or redness from your wound, or fevers, please call the office. Print Language: Nicaraguan
[2024-01-13] MEDS: traMADoL HCL 50 MG TABLET 100 MG PO (14:24)
== END 2024-01-13 16:36 | disposition home or self-care (01) ==
PROVIDERS: PCP Student in an Organized Health Care Education/Training Program; Visit Provider Neurological Surgery
PROC: (CPT 22551; principal; 2024-01-13 11:30)
DX: G95.29 Other cord compression (principal); M50.323 Other cervical disc degeneration at C6-C7 level; M50.322 Other cervical disc degeneration at C5-C6 level; M48.02 Spinal stenosis, cervical region; G95.89 Other specified diseases of spinal cord
CPT/HCPCS: 22551; 22552; 22853; 20936; 22845; C1713; C1889; J0131; J0690; J1100; J2250; J2405; J2704; J3010

== ENCOUNTER → 2024-01-13 08:01 | Outpatient (BNV) | payer MEDICAID, SELFPAY | PROVIDERS: PCP Student in an Organized Health Care Education/Training Program; Visit Provider Neurological Surgery | DX: M50.022 Cervical disc disorder at C5-C6 level with myelopathy (principal); M50.023 Cervical disc disorder at C6-C7 level with myelopathy | CPT/HCPCS: 20936; 22551; 22552; 22845; 22853; 99499 ==

== ENCOUNTER 2024-02-02 14:47 | Outpatient (AMB) | payer MEDICAID, SELFPAY ==
--- NOTE | 2024-02-02 14:48 | A.SPINEOV_ITS ---
Intake Visit Reasons: 1st post op Intake Note: Mr. Rashi Mendoza is here today for his 1st post-op visit. Finance Effectiveness Manager Required: No Allergies shellfish derived Allergy (Severe, Verified 02/02/24 14:55) Anaphylaxis lodine Allergy (Unknown, Uncoded 12/23/22 12:59) Unknown Assessment & Plan Assessment & Plan (1) S/P cervical spinal fusion: Code(s): Z98.1 - Arthrodesis status Category: Surgical Plan Procedure: C5-C6, C6-7 ACDF Van is a pleasant 48-year-old male who comes in today for his 1st postoperative visit after a C5-6, C6-7 was completed for cervical myelopathy. He had diffuse numbness and tingling in his bilateral upper and lower extremities, alongside a feeling of weakness. He also had hyperreflexia on exam. Today he reports improvement in his ability to use his hands and upper extremities. He also reports some improvement in his right lower extremity. Unfortunately he continues to report pain in his left lower extremity and feels as though he may have an impingement of some kind that has gone untreated. He would like to discuss this further in his next postoperative visit. Overall he is satisfied with the surgery. He asked several questions regarding the postoperative healing course all of which I answered to the best of my ability. No new neurological deficits. The patient ambulates well with the assistance of his cane. His anterior incision site appears closed and well healing. I would like to see the patient again in 6 weeks and obtain a set of x-rays to review with him. We may also discuss his left lower extremity symptoms in order a repeat MRI after his next visit. Frederic Glynn MD,PhD [facility] Coding Level of Care Code Global (91894) Diagnoses S/P cervical spinal fusion Z98.1
== END 2024-02-02 15:16 | disposition home or self-care (01) ==
PROVIDERS: PCP Student in an Organized Health Care Education/Training Program; Visit Provider Physician Assistant
DX: Z98.1 Arthrodesis status (principal)
CPT/HCPCS: 99024

== ENCOUNTER → 2024-02-02 14:47 | Outpatient (BNVA) | payer MEDICAID, SELFPAY | PROVIDERS: PCP Student in an Organized Health Care Education/Training Program; Visit Provider Physician Assistant | DX: Z48.89 Encounter for other specified surgical aftercare (principal); Z98.1 Arthrodesis status | CPT/HCPCS: 99212 ==

== ENCOUNTER 2024-03-15 09:22 | Outpatient (REF) | payer MEDICAID, SELFPAY | END 2024-03-15 09:23 | disposition home or self-care (01) | LOC: HO.HOSX 09:22 | PROVIDERS: Visit Provider Physician Assistant | DX: Z98.1 Arthrodesis status (principal); M79.605 Pain in left leg | CPT/HCPCS: 72040; 99212 ==

== ENCOUNTER 2024-03-15 13:00 | Outpatient (AMB) | payer MEDICAID, SELFPAY ==
--- NOTE | 2024-03-15 13:05 | A.SPINEOV_ITS ---
Intake Visit Reasons: 2 post op with xrays/new problem Intake Note: Mr. Rashi Mendoza is here for his 2nd Post-op with xrays. Solar Installation Helper Required: Yes Solar Installation Helper Services: Solar Installation Helper Present Allergies shellfish derived Allergy (Severe, Verified 02/02/24 14:55) Anaphylaxis lodine Allergy (Unknown, Uncoded 12/23/22 12:59) Unknown Assessment & Plan Assessment & Plan (1) Leg pain, left: Code(s): M79.605 - Pain in left leg Category: Medical Plan Van is a pleasant 49 year old male who comes in today for his 2nd postoperative appointment. To recap he was referred to our office by our colleagues in pain management here at [facility] for surgical evaluation after he was found to have a disc herniation on lumbar MRI. He subsequently had a L5-S1 microdiscectomy completed by our service on 01/07/24 for a bilateral lumbar radiculopathy. He had complete resolution of his radicular symptoms, but still had very bad low back pain. He was evaluated by Dr. Glynn post-operatively who noted that the patient does have quite a bit of degeneration on Lumbar MRI at L5-S1. They discussed how lumbar fusion at this level would only have about a 60% chance of success in treating his back pain. During this visit Dr. Glynn also noted myelopathic reflxes on exam and sent the patient for cervical MRI. The patient was found to have severe cervical cord with myelopathy and had C5-7 ACDF on 01/13/24 completed to address this. Unfortunately Van is now reporting return of severe pain diffusely throughout his left lower extremity. He does not mention much back pain. He is unable to adequately bear weight on this leg, and states it has severely restricted his mobility and ADLs. He denies bowel / bladder issues, and denies saddle anesthesia. He asked several questions during this visit regarding FMLA and disability, which I encouraged him to dis cuss with his PCP, as we have limited knowledge / information regarding this. On examination Van is noted to walk with a 4 pronged cane, and is severely antalgic favoring the right side. He has what I would call 3+/5 strength with left sided EHL / dorsiflexion / plantar flexion (likely pain limited). He has about 2/5 strength with left sided illiopsoas testing. His knee extension and knee flexion on the left is about 4/5. His right side is 5/5. He denies any sensational changes. Today Destini presentation is one that is out of proportion to current imaging / exam findings. I am not sure what exactly is causing this severe left sided leg pain that he has, and why is has suddenly surfaced now, but his back pain seems to have resolved. He has had 2 MRI's in the last 6 months (cervical and lumbar) so I am hesitant to abruptly order another when his symptoms seem to be changing month to month. I would like to send him for an XR of the left hip to rule out hip pathology as an acute process such as osteonecrosis could be responsible for this abrupt severe pain. I will also have him follow up with Dr. Glynn for a subsequent evaluation, and to discuss whether he would be a good candidate for L5-S1 fusion given his symptoms thus far, and response to previous surgery. Frederic Glynn MD,PhD [facility] Orders: Orders XR hip LT min 2V Today M79.605 - Pain in left leg XR cervical spine 2V Today Z98.1 - Arthrodesis status Coding Level of Care Code Global (51037) Diagnoses Leg pain, left M79.605
== END 2024-03-15 13:44 | disposition home or self-care (01) ==
LOC: HO.HNS 13:01
PROVIDERS: PCP Student in an Organized Health Care Education/Training Program; Visit Provider Physician Assistant
DX: M79.605 Pain in left leg (principal)
CPT/HCPCS: 99024

== ENCOUNTER 2024-03-30 13:28 | Outpatient (REF) | payer MEDICAID, SELFPAY | END 2024-03-30 13:29 | disposition home or self-care (01) | LOC: HO.HOSX 13:28 | PROVIDERS: Visit Provider Neurological Surgery | DX: M79.605 Pain in left leg (principal); M48.061 Spinal stenosis, lumbar region without neurogenic claudication; M51.379 Other intervertebral disc degeneration, lumbosacral region without mention of lumbar back pain or lower extremity pain; R29.818 Other symptoms and signs involving the nervous system | CPT/HCPCS: 73502; 99212 ==

== ENCOUNTER 2024-03-30 13:38 | Outpatient (AMB) | payer MEDICAID, SELFPAY ==
--- NOTE | 2024-03-30 13:45 | A.SPINEOV_ITS ---
Intake Visit Reasons: Discuss possible 3rd sx Intake Note: Mr. Rashi Mendoza is here today to discuss surgical options. Math And Sciences Department Chair Required: Yes Math And Sciences Department Chair Name: Spouse/Karis Allergies shellfish derived Allergy (Severe, Verified 02/02/24 14:55) Anaphylaxis lodine Allergy (Unknown, Uncoded 12/23/22 12:59) Unknown Assessment & Plan Assessment & Plan (1) Neuroforaminal stenosis of lumbar spine: Code(s): M48.061 - Spinal stenosis, lumbar region without neurogenic claudication Category: Medical (2) Neurogenic claudication: Code(s): R29.818 - Other symptoms and signs involving the nervous system Category: Medical (3) Disc disease, degenerative, lumbar or lumbosacral: Code(s): M51.379 - Other intervertebral disc degeneration, lumbosacral region without mention of lumbar back pain or lower extremity pain Category: Medical Plan Dear colleague, On 03/30/2024 I saw for follow-up Van Mendoza. As you know he underwent an L5-S1 lumbar microdiskectomy for bilateral radiculopathy and symptoms of cauda equina syndrome with good results. He then presented with cervical myelopathy for which he underwent a two-level anterior diskectomy and fusion. He still has residual balance problems due to the previous spinal cord compression. His main complaint now is bilateral leg pain with the left side is more affected than the right side that significantly increases with walking and standing. Sitting improves the symptoms but does not completely resolve them. In addition to the radicular symptoms he has ongoing back pain. The MRI of 08/27/2023 shows a near collapse L5-S1 disc space at more importantly it shows severe bilateral L5 foraminal stenosis where the left side is more affected than the right side which is in agreement with his clinical presentation. This patient unfortunately, needs more surgery to address the bilateral neuroforaminal stenosis. I am going to order a CT of the lumbar spine to assess if there is auto fusion of the L5-S1 segment, which will determine the type of surgery the patient will have to undergo. If fusion is present then a bilateral L5 foraminotomy would be the treatment of choice. If there is no fusion then I would recommend an oblique lateral lumbar interbody fusion L5-S1 to address the back pain and indirectly decompress the bilateral L5 nerve roots to address his neurogenic claudication symptoms. I explained rationale behind the surgical options to the patient on the hand of a model. I will see him back after CT scan is done. I spent 30 minutes in his consult to review imaging and to discuss plan of care. Thank you for allowing me take care of your patient. Freddy Glynn MD, PhD Spine Fellowship Trained Neurosurgeon Director, [facility] Orders: Orders XR hip LT min 2V Today M79.605 - Pain in left leg CT lumbar spine wo IV con Today M48.061 - Spinal stenosis, lumbar region without neurogenic claudication, M51.379 - Other intervertebral disc degeneration, lumbosacral region without mention of lumbar back pain or lower extremity pain, R29.818 - Other symptoms and signs involving the nervous system Coding Level of Care Code Est Pt Level 4 (01566) Diagnoses Neuroforaminal stenosis of lumbar spine M48.061 Neurogenic claudication R29.818 Disc disease, degenerative, lumbar or lumbosacral M51.379
== END 2024-03-30 14:05 | disposition home or self-care (01) ==
PROVIDERS: PCP Student in an Organized Health Care Education/Training Program; Visit Provider Neurological Surgery
DX: M48.061 Spinal stenosis, lumbar region without neurogenic claudication (principal); R29.818 Other symptoms and signs involving the nervous system; M51.379 Other intervertebral disc degeneration, lumbosacral region without mention of lumbar back pain or lower extremity pain
CPT/HCPCS: 99214

== ENCOUNTER 2024-05-13 13:54 | Outpatient (REF) | payer MEDICAID, SELFPAY ==
--- NOTE | ~2024-05-13 | CT_ITS ---
CLINICAL HISTORY: M51.379 - Other intervertebral disc degeneration, lumbosacral region wit... CT lumbar spine without contrast Comparison: None Findings: Normal vertebral body alignment. No acute fractures or dislocations. Multilevel disc space narrowing and endplate osteophyte formation, as well as facet hypertrophy. Mild multilevel canal stenoses. Severe bilateral L5-S1 and moderate bilateral L3-L4 and L4-L5 foraminal stenoses. Nonobstructing 2 mm calculus within the right interpolar kidney. IMPRESSION: 1. Multilevel degenerative disc and facet disease associated with multilevel canal and foraminal stenoses as described above. 2. Nonobstructing right renal calculus. This document has been electronically signed by: Kang Mora MD on 05/16/2024 14:53:09
== END 2024-05-13 13:55 | disposition home or self-care (01) ==
LOC: HO.CT 13:54
PROVIDERS: PCP Student in an Organized Health Care Education/Training Program; Visit Provider Neurological Surgery
DX: M51.379 Other intervertebral disc degeneration, lumbosacral region without mention of lumbar back pain or lower extremity pain (principal); R29.818 Other symptoms and signs involving the nervous system; M48.061 Spinal stenosis, lumbar region without neurogenic claudication
CPT/HCPCS: 72131

== ENCOUNTER → 2024-05-13 13:56 | Outpatient (BNV) | payer MEDICAID, SELFPAY | PROVIDERS: PCP Student in an Organized Health Care Education/Training Program; Visit Provider Radiology Diagnostic Radiology | DX: M51.379 Other intervertebral disc degeneration, lumbosacral region without mention of lumbar back pain or lower extremity pain (principal); M48.07 Spinal stenosis, lumbosacral region | CPT/HCPCS: 72131 ==

== ENCOUNTER 2024-05-20 13:10 | Outpatient (AMB) | payer MEDICAID, SELFPAY ==
--- NOTE | 2024-05-20 13:27 | A.SPINEOV_ITS ---
Intake Visit Reasons: CT follow up Intake Note: Mr. Pradeep Mendoza is here today to F/u on his CT Results. Marriage And Family Social Worker Required: No Allergies shellfish derived Allergy (Severe, Verified 02/02/24 14:55) Anaphylaxis lodine Allergy (Unknown, Uncoded 12/23/22 12:59) Unknown Assessment & Plan Assessment & Plan (1) Disc disease, degenerative, lumbar or lumbosacral: Code(s): M51.379 - Other intervertebral disc degeneration, lumbosacral region without mention of lumbar back pain or lower extremity pain Category: Medical Qualifiers: Disc-related pain type: discogenic back pain and lower extremity pain Qualified Code(s): M51.372 - Other intervertebral disc degeneration, lumbosacral region with discogenic back pain and lower extremity pain (2) Neuroforaminal stenosis of lumbar spine: Code(s): M48.061 - Spinal stenosis, lumbar region without neurogenic claudication Category: Medical Plan Dear colleague, On 05/19/2024 I saw for follow-up Van Markham to discuss the CT findings. The CT of the lumbar spine shows no fusion and therefore we will go ahead and schedule the oblique lateral lumbar interbody fusion L5-S1 for 08/03/2023. Coding Level of Care Code Est Pt Level 2 (57080) Diagnoses Degeneration of intervertebral disc of lumbosacral region with discogenic back pain and lower extremity pain M51.372 Disc-related pain type: discogenic back pain and lower extremity pain Neuroforaminal stenosis of lumbar spine M48.061
== END 2024-05-20 13:51 | disposition home or self-care (01) ==
PROVIDERS: PCP Student in an Organized Health Care Education/Training Program; Visit Provider Neurological Surgery
DX: M51.372 Other intervertebral disc degeneration, lumbosacral region with discogenic back pain and lower extremity pain (principal); M48.061 Spinal stenosis, lumbar region without neurogenic claudication
CPT/HCPCS: 99212

== ENCOUNTER → 2024-05-20 13:10 | Outpatient (BNVA) | payer MEDICAID, SELFPAY | PROVIDERS: PCP Student in an Organized Health Care Education/Training Program; Visit Provider Neurological Surgery | DX: M51.372 Other intervertebral disc degeneration, lumbosacral region with discogenic back pain and lower extremity pain (principal); M48.061 Spinal stenosis, lumbar region without neurogenic claudication | CPT/HCPCS: 99212 ==

== ENCOUNTER 2024-06-14 11:26 | Outpatient (REF) | payer MEDICAID, SELFPAY ==
[2024-06-14 11:38] LABS: MANUAL DIFF FLAG NO
[2024-06-14 12:57] LABS: Basophils Percent Auto 0.3 % (0-2); Eosinophils Absolute Auto 0.1 X10*3/uL (0.0-0.4); Eosinophils Percent Auto 0.9 % (0-4); Hematocrit 42.7 % (42.0-52.0); Hemoglobin 14.2 g/dl (14.0-18.0); Imm Gran Abs Auto 0.02 X10*3/uL (0.00-0.03); Imm Gran Pct Auto 0.3 % (0.0-0.4); Lymphocytes Absolute Auto 2.8 X10*3/uL (1.2-4.9); Lymphocytes Percent Auto 40.5 % (20-40); Mean Corpuscular HGB Conc 33.3 g/dl (31.0-36.0); Mean Corpuscular Hemoglobin 30.5 pg (27.0-33.0); Mean Corpuscular Volume 91.6 fL (80.0-98.0); Mean Platelet Volume 9.9 fL (9.4-12.4); Monocytes Absolute Auto 0.4 X10*3/uL (0.1-1.2); Monocytes Percent Auto 5.8 % (2-11); Neutrophils Absolute Auto 3.7 x10*3/uL (2.0-8.3); Neutrophils Percent Auto 52.2 % (45-73); Platelet Count 164 X10*3/uL (160-400); Red Blood Count 4.66 X10*6/uL (4.60-5.80)
[2024-06-14 13:18] LABS: Alanine Aminotransferase 11 U/L (0-40); Albumin Level 4.2 g/dL (3.5-5.0); Alkaline Phosphatase 101 U/L (39-117); Anion Gap 15 (12-20); Aspartate Amino Transferase 24 U/L (5-37); Bilirubin Total 0.6 mg/dL (0.0-1.0); Blood Urea Nitrogen 10 mg/dL (9-16); Calcium 9.3 mg/dL (8.4-10.2); Carbon Dioxide 28 mmol/L (22-29); Chloride 106 mmol/L (96-108); Estimated Glomerular Filt Rate > 60; Glucose Random 100 mg/dL (60-115); Potassium 4.6 mmol/L (3.3-5.1); Sodium 144 mmol/L (135-145); Total Protein 8.3 g/dL (6.5-8.0)
[2024-06-16 13:39] LABS: HIV RNA PCR Qn Copies NOT DETECTED copies/mL (NOT DETECTED); HIV RNA PCR Qn Log Copies NOT DETECTED (NOT DETECTED)
[2024-06-18 20:43] LABS: Absolute CD3 Count 1990 cells/uL (840-3060); Absolute CD4 Count 1240 cells/uL (490-1740); Absolute CD8 Count 764 cells/uL (180-1170); Absolute Lymphocytes 2597 cells/uL (850-3900); CD4 CD8 Ratio 1.62 (0.86-5.00); Percent CD3 Cells 77 % (57-85); Percent CD4 Cells 48 % (30-61); Percent CD8 Cells 29 % (12-42)
== END 2024-06-14 11:27 | disposition home or self-care (01) ==
LOC: HO.LAB 11:26
PROVIDERS: PCP Internal Medicine; Visit Provider Internal Medicine
DX: Z21 Asymptomatic human immunodeficiency virus [HIV] infection status (principal)
CPT/HCPCS: 36415; 80053; 85025; 86359; 86360; 87536

== ENCOUNTER 2024-07-12 08:49 | Inpatient (IN) | payer MEDICAID, SELFPAY ==
[2024-06-23 12:20] VITALS: BP 118/61; PULSE 92; RESP 16; O2SAT 99; BMI 21.2
[2024-07-12] VITALS (16 sets, daily range): BP systolic 99–139; BP diastolic 48–79; PULSE 45–76; RESP 14–22; TEMP 36.2–37.2; O2SAT 95–100
--- NOTE | ~2024-07-12 | FL_ITS ---
EXAMINATION: FLUOROSCOPY GUIDANCE FOR NEEDLE PLACEMENT CLINICAL INFORMATION: L5-S1 Transkambin Lumbar Interbody Fusion COMPARISON: None available. TECHNIQUE: There are 2 digital images obtained in the OR. No radiologist present FINDINGS/ FL/FL guidance in OR IMPRESSION: There is interbody prosthesis at the L5-S1 disc level stabilized with bilateral L5 and S1 pedicle screws and interconnecting rods for fusion. FLUOROSCOPY TIME: 01:20 minutes DOSE AREA PRODUCT: 14.861 uGy-m2 (microgray-meter squared) Electronically signed by: Javier Skelton MD 07/13/2024 07:14 AM EST
[2024-07-12] MEDS: Gabapentin 300 MG CAPSULE PO (09:24)
[2024-07-12] MEDS: Lactated Ringers 1,000 ML 100 ML IVCONT (09:24)
[2024-07-12] MEDS: methocarbamoL 750 MG TABLET PO (09:24)
--- NOTE | 2024-07-12 09:28 | P.HPSUR_ITS ---
Pre-Procedural Eval Section A - 24 Hr Update-Section A only Date of Service: 07/12/24 The patient is an INPATIENT: Yes The patient has been examined within 24 hours of the surgical procedure. The History & Physical has been completed within 30 days and I have reviewed it.: No Section B - Complete if H&P > 30 days Chief Complaint: S/P l5-s1 OLIF Details of Present Illness: Back pain and bilateral lumbar radiculopathy History of Previous Operations: Relevant previous surgery/procedure and date(s) Allergies: Allergies Allergy/AdvReac Type Severity Reaction Status Date / Time shellfish derived Allergy Severe Anaphylaxis Verified 07/12/24 08:56 lodine Allergy Unknown Unknown Uncoded 06/23/24 12:40 Review of Systems Sugical H&P ROS: Negative: Constitution, Cardiovascular, Respiratory, Neurological, Psychiatric, Hem-Onc, Allergic/Immunologic, Gastrointestinal, Genitourinary, Musculoskeletal, Integumentary, Endocrine and Eyes/Ears/Nose/Throat Exam Surgical H&P Exam: Normal: HEENT, Normal: Heart, Normal: Lungs, Normal: Extremit ies, Normal: Abdomen, Normal: Skin and Normal: Neurological (Awake, alert) Plan Diagnosis/Plan: Unchanged I have reviewed the history and physical and performed a pertinent physical examination on my patient. No changes have occurred unless specified. Oblique lumbar lateral interbody fusion (trans Kambin) Time Spent With Patient Time: Total time managing care of this patient today __5__ minutes.
--- NOTE | 2024-07-12 09:59 | P.CONAN_ITS ---
Documented by User: Sahara Tyson NP 07/11/24 11:50 HPI - Anesthesia Eval Consult details Narrative: 49yo M for L5-S1 Transkambin Lumbar Interbody Fusion, 07/12/24 Suboxone daily 24mg: will take 16mg 07/09-07/11, none DOS per surgeon PMFSH Active Problems Active Problems: All Active Problems Disc disease, degenerative, lumbar or lumbosacral (Acute) Neurogenic claudication (Acute) Neuroforaminal stenosis of lumbar spine (Acute) Leg pain, left (Acute) S/P cervical spinal fusion (Acute) Cervical myelopathy (Acute) Bone marrow edema (Acute) Lumbar radiculopathy (Acute) Status post lumbar spine surgery for decompression of spinal cord (Acute) Lumbar disc herniation with radiculopathy (Acute) Varicose veins of right lower extremity with inflammation (Acute) PAD (peripheral artery disease) (Acute) Past Medical History Medical History (Updated 06/23/24 @ 12:46 by Margie Sanchez RN) Hx of varicose veins Arthritis Back pain Anxiety Depression Numbness Dizziness Peripheral neuropathy Ambulates with cane Spinal stenosis, lumbosacral region Lumbar disc herniation Spinal stenosis of lumbar region with neurogenic claudication Opioid dependence HIV (human immunodeficiency virus infection) Hepatitis C Family History Family history of problems with anesthesia: No Surgical History Surgical History (Updated 06/23/24 @ 12:04 by Margie Sanchez RN) Hx of cervical spine surgery (01/13/24) History of back surgery Hx of exploratory laparotomy History of Problems with Anesthesia: No Social History Social History (Updated 06/23/24 @ 12:43 by Margie Sanchez RN) Household Members: Spouse Housing: Apartment Are you a primary student career development specialist to a significant other at home: No Do you presently have visiting nurse or other home services: No Patient Tobacco Use Status: Current everyday Tobacco user Tobacco use type: Cigarette Cigarette Packs Per Day: 0.5 Cigarettes Per Day: 10 Years Smoked: 35 Smoked in Last 30 Days: Yes Patient Interested in Nicotine Replacement: No Second Hand Smoke Exposure: Yes Use of substances other than those prescribed or required for medical reasons: Yes Substance Use Type: Marijuana Substance Use Frequency: Daily Have you been hit, kicked, punched, or otherwise hurt by someone within the past year? If so, by whom?: No Are you DNR?: No Advance Directives: No Advance Directives Information Provided: Yes Advance Directives on File: No Recently lost weight without trying: No Poor oral hygiene: Yes (no teeth on bottom) Meds Allergies Allergy/AdvReac Type Severity Reaction Status Date / Time shellfish derived Allergy Severe Anaphylaxis Verified 07/12/24 08:56 lodine Allergy Unknown Unknown Uncoded 06/23/24 12:40 Home Medications ?Medication ?Instructions ?Recorded ?Confirmed ?Last Taken ?Type abacavir 600 mg-dolutegravir 50 1 tab PO BEDTIME 11/15/20 07/12/24 07/11/24 History mg-lamivudine 300 mg tablet (Triumeq) emollient combination no.114 1 appl topical DAILY 11/15/20 07/12/24 07/11/24 History (Eucerin Advanced Repair Foot topical cream) buprenorphine 8 mg-naloxone 2 mg 8 mg sublingual TID 12/23/22 07/12/24 07/11/24 History sublingual film (Suboxone) gabapentin 800 mg tablet 800 mg PO TID PRN Pain 12/23/22 07/12/24 07/11/24 History Exam Height,Weight and Vital Signs: Height 6 ft 2 in Weight 74.843 kg Last Vital Signs Pulse 92 06/23/24 12:20 Resp 16 06/23/24 12:20 BP 118/61 06/23/24 12:20 Pulse Ox 99 06/23/24 12:20 O2 Del Method Room Air 06/23/24 12:20 Pertinent Lab Results Pertinent Lab Results: Laboratory Tests 06/14/24 11:37 WBC 7.0 Hgb 14.2 Hct 42.7 Plt Count 164 Sodium 144 Potassium 4.6 Chloride 106 Carbon Dioxide 28 BUN 10 Creatinine 0.82 Narrative Narrative: EKG 2022 Vent. Rate : 065 BPM Atrial Rate : 065 BPM P-R Int : 198 ms QRS Dur : 090 ms QT Int : 366 ms P-R-T Axes : 080 031 034 degrees QTc Int : 380 ms Normal sinus rhythm Normal ECG No previous ECGs available Assessment and Plan Assessment Anesthesia Assessment: Chart Reviewed Final Anesthetic Review Family History of Problems with Anesthesia: No History of Problems with Anesthesia: No Documented by User: Connie Yi DO 07/12/24 10:01 [facility] Past Medical History Medical History (Updated 06/23/24 @ 12:46 by Margie Sanchez, PER) Hx of varicose veins Arthritis Back pain Anxiety Depression Numbness Dizziness Peripheral neuropathy Ambulates with cane Spinal stenosis, lumbosacral region Lumbar disc herniation Spinal stenosis of lumbar region with neurogenic claudication Opioid dependence HIV (human immunodeficiency virus infection) Hepatitis C Family History Family history of problems with anesthesia: No Surgical History Surgical History (Updated 06/23/24 @ 12:04 by Margie Sanchez, PER) Hx of cervical spine surgery (01/13/24) History of back surgery Hx of exploratory laparotomy History of Problems with Anesthesia: No Social History Social History (Updated 06/23/24 @ 12:43 by Margie Sanchze RN) Household Members: Spouse Housing: Apartment Are you a primary student career development specialist to a significant other at home: No Do you presently have visiting nurse or other home services: No Patient Tobacco Use Status: Current everyday Tobacco user Tobacco use type: Cigarette Cigarette Packs Per Day: 0.5 Cigarettes Per Day: 10 Years Smoked: 35 Smoked in Last 30 Days: Yes Patient Interested in Nicotine Replacement: No Second Hand Smoke Exposure: Yes Use of substances other than those prescribed or required for medical reasons: Yes Substance Use Type: Marijuana Substance Use Frequency: Daily Have you been hit, kicked, punched, or otherwise hurt by someone within the past year? If so, by whom?: No Are you DNR?: No Advance Directives: No Advance Directives Information Provided: Yes Advance Directives on File: No Recently lost weight without trying: No Poor oral hygiene: Yes (no teeth on bottom) Meds Allergies Allergy/AdvReac Type Severity Reaction Status Date / Time shellfish derived Allergy Severe Anaphylaxis Verified 07/12/24 08:56 lodine Allergy Unknown Unknown Uncoded 06/23/24 12:40 Home Medications ?Medication ?Instructions ?Recorded ?Confirmed ?Last Taken ?Type abacavir 600 mg-dolutegravir 50 1 tab PO BEDTIME 11/15/20 07/12/24 07/11/24 History mg-lamivudine 300 mg tablet (Triumeq) emollient combination no.114 1 appl topical DAILY 11/15/20 07/12/24 07/11/24 History (Eucerin Advanced Repair Foot topical cream) buprenorphine 8 mg-naloxone 2 mg 8 mg sublingual TID 12/23/22 07/12/24 07/11/24 History sublingual film (Suboxone) gabapentin 800 mg tablet 800 mg PO TID PRN Pain 12/23/22 07/12/24 07/11/24 History Exam Exam Date and Time: 07/12/24 1000 Height,Weight and Vital Signs: Height 6 ft 2 in Weight 74.843 kg Last Vital Signs Pulse 92 06/23/24 12:20 Resp 16 06/23/24 12:20 BP 118/61 06/23/24 12:20 Pulse Ox 99 06/23/24 12:20 O2 Del Method Room Air 06/23/24 12:20 Vital Signs Pulse Rate 92 06/23/24 12:20 Respiratory Rate 16 06/23/24 12:20 Blood Pressure 118/61 06/23/24 12:20 Pulse Oximetry 99 06/23/24 12:20 Oxygen Delivery Method Room Air 06/23/24 12:20 Temperature 98.4 F 07/12/24 08:57 Pulse Rate 76 07/12/24 08:57 Respiratory Rate 14 07/12/24 08:57 Blood Pressure 105/75 07/12/24 08:57 Pulse Oximetry 95 07/12/24 08:57 Oxygen Delivery Method Room Air 07/12/24 08:57 Airway Mallampati Class: I TM Dist: >3cm Neck ROM: Full Loose/Missing/Broken Teeth: No (patient denies any loose or broken teeth) Heart: S1S2 Lungs: CTAB Assessment and Plan Assessment Anesthesia Assessment: Anesthesia Plan Discussed and Chart Reviewed Final Anesthetic Review Family History of Problems with Anesthesia: No History of Problems with Anesthesia: No NPO: Yes ASA Class: III Final Preanesthetic Review: No Changes in Pt Med Stat, Meds/Allgs Chart Reviewed, Consent Obtained/Reviewed and Anes Risks/Benef Reviewed Patient Risk: Intermediate Procedure Risk: Intermediate Anesthetic Plan Anesthetic Plan: GA and Agree w/ Assess. and Plan Disposition: Standard PACU
[2024-07-12] MEDS: ceFAZolin Sodium/Dextrose,Iso 2 GM/50 ML PIGGYBACK IV ×3 (10:40→22:50)
--- NOTE | 2024-07-12 12:10 | W.PM.OPN ---
Operative Note Operative Note Date of Service: 07/12/24
--- NOTE | 2024-07-12 12:24 | P.OP_ITS ---
Operative Note Operative Note Date of Service: 07/12/24 Narrative: Preoperative diagnosis: 1) lumbar degenerative disc disease and bilateral neuroforaminal stenosis with back pain and bilateral leg pain Postprocedure diagnosis: 1) same as above Procedure: 1) L5-S1 oblique lateral lumbar interbody fusion with discectomy, preparation of the endplates and placement of a titanium bullet cage packed with allograft, anterior to the transverse process in modified prone position, with int raoperative biplanar fluoroscopy imaging and electrophysiological monitoring 2) L5-S1 posterior minimally invasive pedicle screw placement and posterior lateral instrumentation and fusion with intraoperative biplanar fluoroscopic imaging and electrophysiological monitoring Consent Informed Consent was obtained for this operation. I have explained the nature, purpose and benefits of the operation. I have discussed the risks and benefit of the operation including possible complications or adverse events with patient/family. Alternative(s) were discussed with the patient with their relative benefits and risks as well as the consequences of not accepting the operation were included in obtaining consent. Surgeon: RADHA TRACY MD, PHD Procedure Assisted By: heidy Morales Description of Procedure: This is a complex surgery on the lumbar spine and an licensed investment sales assistant as needed for safety of the surgery for setup of instrumentation, retraction and closing. History: This 49-year-old male underwent a microdiskectomy in the past with good results. However he developed a complete collapse of the L5-S1 disc segment with bilateral L5 neuroforaminal stenosis causing severe back pain and a bilateral L5 radiculopathy, left more than right. The patient was offered an oblique lumbar lateral interbody fusion followed by a posterior lateral instrumented fusion L5-S1. The procedure and complications were explained and the patient was consented. Procedure: The patient was brought to the operating room and endotracheally intubated. The patient was positioned on the Benjamin spine table in a modified prone position for ease of access from the left side.. 2C arms were installed for fluoroscopy. Prepping and draping was done followed by timeout. The landmarks, including spinal processes, transverse processes, disc space, endplates and pedicles are identified and marked. The following steps are taken for each specified level: L5-S1 level: Cage size 10 mm high and 33 mm long titanium . The patient was turned using the rotation of the surgical table so a near direct anterior lateral approach to the lumbar spine could be achieved. A small incision was then made superior to the mid iliac crest and then using biplanar fluoroscopy visualization, under electrophysiological monitoring and stimulation, we introduced an electrophysiological probe through the retroperitoneal space into the desired disc anterior to the transverse process and then passed it into the disc space after finding a silent window. Initially, a silent with the could not be found. I decided to make a paramedian incision and to drill down the lateral facet. Then the dilating tube was then passed along the same route. Following this, a working channel was then passed sequentially into the disc space. The working channel was manually held in position while a series of disc cleaning tools were passed through the channel to remove the affected disc under clear and direct biplanar fluoroscopic visualization, decompress the nerve roots and equal corticated vertebral endplates at this segment. Arthrodesis of the intervertebral space via an anterior retroperitoneal exposure was achieved through Kambin's [place] and lateral extraforaminal space. Allograft was added into the anterior disc space. The working channel was then removed. A titanium interbody cage tightly packed with allograft was then inserted into the midportion of the intervertebral disc space over a K-wire under biplanar fluoroscopic visualization and intraoperative neuro monitoring. The inter pedicular and intradiscal space was significantly enlarged and disc height was restored to worked normal anatomy there for releasing pressure on the nerve roots visual largely the spinal canal and lateral recess as well as foramen were bilateral decompressed and all bones were confined to the borders of the disc space . The following steps are then taken for each specified level: L5-S1 level: Bilateral L5 screws with a diameter of 6.5 x 45 mm and bilateral S1 screws with a diameter of 6.5 x 40 mm. The posterolateral fusion is initiated after the patient is rotated to a true prone position. The entry point to the pedicle is identified in the AP and lateral views and then the skin incision is injected with local anesthetic. We entered the pedicle with the pediguard tap after which a K-wire was introduced into the vertebral body. Additionally, I used a small periosteal decorticator along the screws to refresh the surface of the bone and facet and I put some amount of allograft for additional stability for the posterolateral fusion. Over the K-wire we insert pedicle screws bilaterally. After the screws were placed, we put the reno in place and under fluoroscopic imaging, we locked the reno in place and removed the screw tops and then each incision has been closed with 0 Vicryl for the fascia and a 3-0 Vicryl for the subdermal layer. Steri- Strips were used to approximate the incisions. An OpSite with Tegaderm was used to cover the incision. Final x-rays and AP and lateral projection showed good position of the interbody device and instrumentation. All sponge and needle counts were correct. The patient was extubated and transported in a stable condition to the recovery room. 2-0 Vicryl This procedure was done with the aid of a physician licensed investment sales assistant as a qualified resident was not available. Anesthesia: General Estimated Blood Loss (ml): 60 mL Specimen: None Duration of Surgery: 1 hour 45 minutes Postoperative Plan: Admit to inpatient
[2024-07-12] MEDS: HYDROmorphone HCl 0.5 MG/0.5 ML SYRINGE IVPUSH ×2 (13:10→13:39)
--- NOTE | 2024-07-12 13:25 | PHA.MEDREC ---
Pharmacy Consult ? Medication Reconciliation Pharmacy has reviewed the medication reconciliation completed by nursing. Spoke with RN to confirm gabapentin dosing.
[2024-07-12] MEDS: Gabapentin 400 MG CAPSULE 800 MG PO ×2 (15:51→20:42)
[2024-07-12] MEDS: oxyCODONE HCl Immed Release 5 MG TABLET 10 MG PO (15:51)
[2024-07-12] MEDS: 0.9 % Sodium Chloride 1,000 ML 75 ML IVCONT (15:52)
[2024-07-12] MEDS: Ketorolac Tromethamine 15 MG/ML VIAL IVPUSH (17:38)
[2024-07-12] MEDS: Acetaminophen 1,000 MG/100 ML PIGGYBACK 400 MG IV (18:26)
[2024-07-12] MEDS: Abacavir/lamiVUDine 600/300 TABLET 1 TAB PO (20:42)
[2024-07-12] MEDS: Dolutegravir Sodium 50 MG TABLET PO (20:42)
[2024-07-12] MEDS: Docusate Sodium 100 MG CAPSULE PO (20:45)
[2024-07-13] MEDS: Ketorolac Tromethamine 15 MG/ML VIAL IVPUSH ×2 (00:18→05:32)
[2024-07-13] MEDS: Acetaminophen 1,000 MG/100 ML PIGGYBACK 400 MG IV ×2 (00:22→06:00)
[2024-07-13] MEDS: 0.9 % Sodium Chloride 1,000 ML 75 ML IVCONT (00:23)
[2024-07-13] MEDS: oxyCODONE HCl Immed Release 5 MG TABLET 10 MG PO ×2 (03:49→07:30)
[2024-07-13] MEDS: ceFAZolin Sodium/Dextrose,Iso 2 GM/50 ML PIGGYBACK IV (03:50)
[2024-07-13 06:00] VITALS: BP 110/62; PULSE 64; RESP 16; TEMP 37; O2SAT 97
--- NOTE | 2024-07-13 06:56 | HO.NEURO.PN ---
Neurosurgery Operative Note Date of Service: 07/13/24 Narrative: POD: 1 Procedure: L5-S1 TLIF Van is a pleasant 49 year old male who underwent L5-S1 TLIF yesterday. He was seen this morning lying in bed on 3-S. Van reports he has been up OOB, is walking around, and is otherwise doing well. He feels his symptoms are much better than pre-operatively. The bilateral leg pain he reported pre-operatively is no longer present. He still reports some low back pain, but has good relief with pain medication. He is voiding well without a zamarripa, and tolerating his current diet. Afebrile, vital signs stable. Full strength 5/5 bilateral LE's. Back dressings have some staining without signs of hematoma. No active sanguineous drainage. Area is dry. Plan: Pleasant 49 year old male who underwent L5-S1 TLIF yesterday. He is progressing normally as expected. He has been up OOB and is tolerating independent ambulation per his report. His pain appears well controlled and his pre-operative symptoms seem to have subsided. Patient meets criteria to be medically discharged home. He was seen at bedside with Dr. Glynn. Frederic Glynn MD,PhD [facility]
--- NOTE | 2024-07-13 07:00 | PM.DS ---
DS: Providers Provider Date of Service: 07/13/24 Date of admission: 07/12/24 08:49 Date of discharge: 07/13/24 Primary care physician: Madyson Elliott MD DS: Summary Time Attestation Discharge Coordination Time (in mins): 13 Quality: Safe Use of Opioids Does Pt have an Active Cancer Diagnosis on the Problem List?: No Quality: Stroke Does the patient have a stroke diagnosis?: No Physical Exam Vital Signs: Vital Signs: Last Vital Signs Temp 98.6 F 07/13/24 06:00 Pulse 64 07/13/24 06:00 Resp 16 07/13/24 06:00 BP 110/62 07/13/24 06:00 Pulse Ox 97 07/13/24 06:00 O2 Del Method Room Air 07/13/24 06:00 O2 Flow Rate 6 07/12/24 12:53 BMI result Body Mass Index 21.2 Discharge Plan Discharge Anticipated Discharge Date/Time: 07/13/24 07:03 Patient Disposition: Home, Self-Care Discharge Diagnosis: s/p L5-S1 TLIF Referrals: Madyson Jarrett MD [Primary Care Provider] - 1 Week Discharge Medications: New oxycodone 5 mg tablet 5 mg PO Q6H PRN (Reason: pain) Qty: 28 0RF Rx Instructions: Partial Fill upon patient request. Continued gabapentin 600 mg tablet 600 mg PO TID Eucerin Advanced Repair Foot Cream 1 appl topical DAILY Triumeq 600-50-300 mg tablet 1 tab PO BEDTIME Held buprenorphine-naloxone [Suboxone] 8-2 mg film 8 mg sublingual TID Hold Instructions: Resume on 07/20/24. See discharge instructions for details Discharge Orders: Discharge Order (Routine); Ordered 07/13/24 Ordered By: Frederic Brothers Activity on Discharge: As tolerated Stand Alone Forms: Patient Portal Discharge page Print Language: Bulgarian Activity Restrictions/Additional Instructions: After your spinal surgery we ask you to observe the following restrictions/guidelines: Activity: It is normal to feel some discomfort as you increase your activity, but that will improve with time. We ask you avoid heavy lifting or acitivities that cause pain. As a general rule, 8lbs is a safe limit for lifting right after surgery. Walk as much as you feel comfortable but not to exhaustion. You will feel extra tired the first few days after surgery. Stay well hydrated. It is OK to walk up and down stairs You may return to driving when you are off narcotics (such as vicodin, oxycodone, dilaudid, etc), and you are back to normal functional capacity. If you have any concerns please check with office before driving. Return to work is specific to each patient and each surgery, so please speak with your doctor/PA at first follow up. Please bring paperwork such as FMLA at that time if you need it filled out. Medications: We prescribed a short course of Oxycodone to help with postoperative pain. Please hold your Suboxone until after this prescription is complete. Discuss starting your Suboxone again with your prescriber. We recommend you take 1,000mg Tylenol every 8 hours for the first few weeks after surgery, if you do not have any liver issues and can tolerate this medication. Do not exceed 4,000mg daily. We will give you a short supply of narcotics after surgery (usually one weeks worth). If you need more please call the office but do not use more than prescribed. You will need to give our office 48 hours notice if you need narcotics refilled and we do not fill narcotics on weekends or evenings. If you are on a narcotic, it is a good idea to take a stool softener such as colace or senna to avoid constipation If you take blood thinner such as aspirin, Plavix, Coumadin, Effient, Eliquis etc for conditions such as Afib, DVT, Pulmonary embolus, coronary disease, stents etc please speak with your surgeon about specific details as to when you can resume these medications. You can resume NSAIDs on post op day 1 (eg: Motrin, Naproxen, etc). Follow up: Please call the office, , after surgery to arrange a 3 week follow up for wound check. Wound Care: You may remove your dressing on the first day after surgery. ?You may ?leave open to air. Please do not remove the steri strips underneath. they will fall off on their own in one week. IT IS NORMAL FOR THE WOUND TO OOZE OR BE BLOODY FOR A FEW DAYS AFTER SURGERY. ?IF THIS HAPPENS JUST PLACE NEW DRESSING OVER IT TO AVOID STAINING CLOTHES. You may shower on post op day # 1 We ask that you do not let the water soak the wound. If it does get wet, just towel dry lightly. Please do not scrub your incision or place any type of chemical/ointment on the wound. No tub baths, pools or jacuzzis for one month. If you have any leaking or redness from your wound, or fevers, please call the office. Care Plan Goals: Return to normal activity as tolerated Health Concerns: None Plan of Treatment: Follow-up in clinic in 2-3 weeks Assessment: POD: 1 Procedure: L5-S1 TLIF Van is a pleasant 49 year old male who underwent L5-S1 TLIF yesterday. He was seen this morning lying in bed on 3-S. Van reports he has been up OOB, is walking around, and is otherwise doing well. He feels his symptoms are much better than pre-operatively. The bilateral leg pain he reported pre-operatively is no longer present. He still reports some low back pain, but has good relief with pain medication. He is voiding well without a zamarripa, and tolerating his current diet. Afebrile, vital signs stable. Full strength 5/5 UE / LE. Back dressings have some staining without signs of hematoma. No active sanguineous drainage. Area is dry. Plan: Pleasant 49 year old male who underwent L5-S1 TLIF yesterday. He is progressing normally as expected. He has been up OOB and is tolerating independent ambulation per his report. His pain appears well controlled and his pre-operative symptoms seem to have subsided. Patient meets criteria to be medically discharged home. He was seen at bedside with Dr. Glynn. Frederic Glynn MD,PhD [facility]
[2024-07-13] MEDS: Gabapentin 400 MG CAPSULE 800 MG PO (07:30)
[2024-07-13] MEDS: Docusate Sodium 100 MG CAPSULE PO (07:30)
[2024-07-13 07:34] VITALS: BP 102/55; PULSE 59; RESP 16; TEMP 36.4; O2SAT 97
[2024-07-13 07:55] VITALS: BP 102/55; PULSE 59; O2SAT 97
--- NOTE | 2024-07-13 08:53 | MHC.CM.PN ---
Addendum entered by Nataly Walker 07/13/24 12:58: PT recommendation id Home with services. Patient active with [facility], for fosterc[facility]. He has been accepted for home PT too. Addendum entered by Nataly Walker 07/13/24 08:58: Discharge order is in. Patient will DC to Home self care, private transport. Original Note: S/P L-5+S1 OLIF Lives with others. TRACK PRODUCTION ENGINEER services assist w ADLS. Patient uses a cane. He declined the offer to document a HCP. Discharge plan is home self care. He will arrange for private transportation home.
--- NOTE | 2024-07-13 10:24 | P.F2F_ITS ---
Service Date Service Date: 07/13/24 Encounter Date of encounter: 07/13/24 Reasons for Services Signs and symptoms assessed: s/p L5-S1 lumbar fusion Reason for physical therapy: home safety and mobility, gait/transfer training and ADL training Homebound: Leaving the home is medically contraindicated at this time without the asist of a device and/or another person due th the listed conditions above and below. Reason homebound: unsteady gait / fall risk, leg weakness, pain with ambulation, pain with transfers and weakness related to hospital stay Certification: Based on the above findings, I certify that this patient is confined to the home and needs intermittent penitentiary care, physical therapy and/or speech therapy, or continues to need occupational therapy. The patient is under my care, and I have initiated the establishment of the plan of care. The patient will be followed by a physician who will periodically review the plan of care. Time Spent With Patient Time: Total time managing care of this patient today _13___ minutes.
--- NOTE | 2024-07-13 10:30 | HO.POSTANES ---
Post Anesthesia Evaluation Post Anesthesia Evaluation Date of Service: 07/13/24 Vital Signs: Vital Signs Temp Pulse Resp BP Pulse Ox O2 Del Method 07/13/24 07:55 59 102/55 L 97 07/13/24 07:34 97.6 F 59 16 102/55 L 97 Room Air 07/13/24 06:00 98.6 F 64 16 110/62 97 Room Air Anesthesia: General Endotracheal-GETA Mental Status: Awake Pain Control: Satisfactory Nausea/Vomiting: None Hydration: Adequate Anesthesia-Related Issues: No Anes. Related Issues
== END 2024-07-13 11:50 | disposition home health service (06) | DRG 304 ==
LOC: HO.SSSA 09:29 → HO.S3 14:23
PROVIDERS: Admitting Provider Neurological Surgery; PCP Student in an Organized Health Care Education/Training Program; Visit Provider Neurological Surgery
PROC: 0SG33A0 Fusion of Lumbosacral Joint with Interbody Fusion Device, Anterior Approach, Anterior Column, Percutaneous Approach (ICD-10-PCS; principal; 2024-07-12 10:50)
DX: M51.372 Other intervertebral disc degeneration, lumbosacral region with discogenic back pain and lower extremity pain (principal); F17.210 Nicotine dependence, cigarettes, uncomplicated; Z71.6 Tobacco abuse counseling; Z79.899 Other long term (current) drug therapy
CPT/HCPCS: 86850; 86900; 86901; 97162; C1713; C1889; J0131; J0330; J0665; J0666; J0690; J1100; J1171; J1885; J2003; J2250; J2371; J2405; J2704; J3010; L8699

== ENCOUNTER → 2024-07-12 08:49 | Outpatient (BNV) | payer MEDICAID, SELFPAY | PROVIDERS: Admitting Provider Neurological Surgery; PCP Student in an Organized Health Care Education/Training Program; Visit Provider Neurological Surgery | DX: M48.062 Spinal stenosis, lumbar region with neurogenic claudication (principal); M51.372 Other intervertebral disc degeneration, lumbosacral region with discogenic back pain and lower extremity pain | CPT/HCPCS: 20930; 22558; 22612; 22840; 22853; 63056; 99024; 99499; G0180 ==

== ENCOUNTER 2024-08-02 14:35 | Outpatient (AMB) | payer MEDICAID, SELFPAY ==
--- NOTE | 2024-08-02 14:40 | A.SPINEOV_ITS ---
Intake Visit Reasons: 1st post op Intake Note: Mr. Pradeep Mendoza is here today for his 1st post op. Care Transitions Manager Required: Yes Care Transitions Manager Services: Care Transitions Manager Present Care Transitions Manager Name: Latonia Humphries Allergies shellfish derived Allergy (Severe, Verified 08/02/24 14:40) Anaphylaxis lodine Allergy (Unknown, Uncoded 06/23/24 12:40) Unknown Assessment & Plan Assessment & Plan (1) S/P lumbar fusion: Code(s): Z98.1 - Arthrodesis status Category: Surgical Plan Procedure: L5-S1 TLIF Van is a pleasant 49-year-old male who comes in today for his 1st postoperative visit. To recap he was initially evaluated preoperatively in clinic by Dr. Glynn for axial low back pain and bilateral radiculopathy. This persisted despite L5-S1 microdiskectomy. He had a fairly complex postoperative course, and experienced quite severe pain and swelling in his low back after surgery. He took his oxycodone sparingly, but has ran out in his still experiencing quite severe low back pain. His partner accompanied him to this visit today who also help to provide some of his history. He has essentially been in constant pain since the surgery, but thankfully reports that his sensation has significantly improved. He stated I have not been able to feel the floor on my feet in 3 years, and can finally feel it again. No new neurological deficits. The patient ambulates with the assistance of a 4 pronged cane. His surgical incision sites are closed and well healing with no signs of drainage. There is still quite a bit of swelling/edema near the posterior incision sites. I would like Van to follow up with us again in 6 weeks and obtain a set of x-rays. Frederic Glynn MD,PhD [facility] Medications: New methylprednisolone PO PER PKG DIR for 6 days 21 ea 0RF Refilled oxycodone Partial Fill upon patient request. 5 mg PO Q6H PRN 20 tabs 0RF pain Coding Level of Care Code Global (90945) Diagnoses S/P lumbar fusion Z98.1
== END 2024-08-02 15:03 | disposition home or self-care (01) ==
LOC: HO.HNS 14:36
PROVIDERS: PCP Student in an Organized Health Care Education/Training Program; Visit Provider Physician Assistant
DX: Z98.1 Arthrodesis status (principal)
CPT/HCPCS: 99024

== ENCOUNTER → 2024-08-02 14:35 | Outpatient (BNVA) | payer MEDICAID, SELFPAY | PROVIDERS: PCP Student in an Organized Health Care Education/Training Program; Visit Provider Physician Assistant | DX: Z47.89 Encounter for other orthopedic aftercare (principal); Z98.1 Arthrodesis status | CPT/HCPCS: 99212 ==

== ENCOUNTER 2024-09-14 12:59 | Outpatient (REF) | payer MEDICAID, SELFPAY ==
--- NOTE | ~2024-09-14 | XR_ITS ---
EXAMINATION: X-ray lumbar spine 4 views. CLINICAL INFORMATION: Status post arthrodesis. TECHNIQUE: AP and lateral views during flexion and extension. . COMPARISON: July 02, 2022. FINDINGS: Status post transpedicular screws at L5-S1 and intervertebral disc spacer placement at L5-S1. S-shaped curvature of the lumbar spine. Marginal osteophyte formation and endplate sclerosis at L4-5 and to a lesser extent L3-4 levels. No acute cortical disruption. No gross malalignment in neutral nor flexion and/or extension position. Mild wedge-shaped compression deformity T12 likely old. XR/XR lumbar spine 4V min IMPRESSION: Status post posterior fusion L5-S1 intervertebral disc spacer placement without acute fracture or listhesis or gross instability Electronically signed by: Fernando Malhotra MD 09/14/2024 02:50 PM EDT
== END 2024-09-14 13:00 | disposition home or self-care (01) ==
LOC: HO.HOSX 12:59
PROVIDERS: Visit Provider Physician Assistant
DX: Z98.1 Arthrodesis status (principal)
CPT/HCPCS: 72110; 99212

== ENCOUNTER 2024-09-14 14:16 | Outpatient (AMB) | payer MEDICAID, SELFPAY ==
--- NOTE | 2024-09-14 14:35 | A.SPINEOV_ITS ---
Intake Visit Reasons: 2nd post op with xrays Intake Note: Mr. Pradeep Mendoza is here today for his 2nd post op with x-rays. Drivers License Examiner Required: Yes Drivers License Examiner Name: Karis marinelli (Family) Allergies shellfish derived Allergy (Severe, Verified 09/14/24 14:35) Anaphylaxis lodine Allergy (Unknown, Uncoded 06/23/24 12:40) Unknown Assessment & Plan Assessment & Plan (1) S/P lumbar fusion: Code(s): Z98.1 - Arthrodesis status Category: Medical Plan Mr Fernández is here 2 months out from his L5-S1 fusion. The back pain is improving as well as a bilateral leg pain. He still does have some left leg pain when he is walking for too long. He has been using a cane but transitioning off it. His wounds are all healing up well. His x-rays look great. We discussed activity guidelines, restrictions and expectations after lumbar fusion. He previously had a referral to physical therapy but it fell through for some reason so we will look into that for him just to help him recover a little more quickly. I will see him back in 2 months for final posto perative visit. Robert Glynn MD, PhD [facility] Orders: Orders XR lumbar spine 4V min Today Z98.1 - Arthrodesis status Coding Level of Care Code Global (54647) Diagnoses S/P lumbar fusion Z98.1
== END 2024-09-14 14:47 | disposition home or self-care (01) ==
LOC: HO.HNS 14:17
PROVIDERS: PCP Student in an Organized Health Care Education/Training Program; Visit Provider Neurological Surgery
DX: Z98.1 Arthrodesis status (principal)
CPT/HCPCS: 99024

== ENCOUNTER → 2024-09-14 14:26 | Outpatient (BNV) | payer MEDICAID, SELFPAY | PROVIDERS: Visit Provider Radiology Diagnostic Radiology | DX: Z98.1 Arthrodesis status (principal) | CPT/HCPCS: 72110 ==

== ENCOUNTER 2024-11-18 14:19 | Outpatient (AMB) | payer MEDICAID, SELFPAY ==
--- NOTE | 2024-11-18 14:22 | HO.SPINEOV ---
Intake Visit Reasons: final post op Intake Note: Mr. Pradeep Mendoza is here today for his final post op. Filler Machine Operator Required: No Allergies shellfish derived Allergy (Severe, Verified 11/18/24 14:25) Anaphylaxis lodine Allergy (Unknown, Uncoded 06/23/24 12:40) Unknown Assessment & Plan Assessment & Plan (1) Lumbar disc herniation with radiculopathy: Code(s): M51.16 - Intervertebral disc disorders with radiculopathy, lumbar region Category: Medical Plan Mr Fernández is 3 months out from his L5-S1 lumbar fusion using a trans Kambin approach. His back pain is better than it was before surgery and he seems to be doing okay. He does not have any pain shooting down the legs. He is no longer using his cane. His wounds have all healed up well. His x-rays at his previous visit looked excellent. I reassured him that at this point he has no restrictions and can resume all activities as tolerated and he can come back and see us down the road if something changes. Robert Glynn MD, PhD [facility] Coding Level of Care Code Global (37254) Diagnoses Lumbar disc herniation with radiculopathy M51.16
== END 2024-11-18 15:14 | disposition home or self-care (01) ==
LOC: HO.HNS 14:20
PROVIDERS: PCP Student in an Organized Health Care Education/Training Program; Visit Provider Physician Assistant
DX: M51.16 Intervertebral disc disorders with radiculopathy, lumbar region (principal)
CPT/HCPCS: 99212

== ENCOUNTER → 2024-11-18 14:19 | Outpatient (BNVA) | payer MEDICAID, SELFPAY | PROVIDERS: PCP Student in an Organized Health Care Education/Training Program; Visit Provider Physician Assistant | DX: M51.16 Intervertebral disc disorders with radiculopathy, lumbar region (principal) | CPT/HCPCS: 99212 ==

== ENCOUNTER 2025-03-08 09:31 | Outpatient (REF) | payer MEDICAID, SELFPAY ==
[2025-03-08 09:51] LABS: MANUAL DIFF FLAG NO
[2025-03-08 10:47] LABS: Hematocrit 44.3 % (42.0-52.0); Hemoglobin 14.7 g/dl (14.0-18.0); Imm Gran Abs Auto 0.03 X10*3/uL (0.00-0.03); Imm Gran Pct Auto 0.3 % (0.0-0.4); Lymphocytes Absolute Auto 2.1 X10*3/uL (1.2-4.9); Mean Corpuscular HGB Conc 33.2 g/dl (31.0-36.0); Mean Corpuscular Hemoglobin 31.1 pg (27.0-33.0); Mean Corpuscular Volume 93.9 fL (80.0-98.0); NRBC Abs Auto 0.000 X10*3/uL (0.0-0.012); NRBC Pct Auto 0.0 /100WBC (0.0-0.2); Platelet Count 160 X10*3/uL (160-400); Red Blood Count 4.72 X10*6/uL (4.60-5.80); White Blood Count 8.7 X10*3/uL (4.8-10.8)
[2025-03-08 11:19] LABS: Alanine Aminotransferase 19 U/L (0-40); Albumin Level 4.5 g/dL (3.5-5.0); Alkaline Phosphatase 98 U/L (39-117); Anion Gap 13 (12-20); Aspartate Amino Transferase 29 U/L (5-37); Blood Urea Nitrogen 12 mg/dL (9-16); Calcium 9.5 mg/dL (8.4-10.2); Carbon Dioxide 29 mmol/L (22-29); Chloride 105 mmol/L (96-108); Cholesterol 130 mg/dL (<200); Estimated Glomerular Filt Rate > 60; HDL Cholesterol 53 mg/dL (>40); Potassium 4.7 mmol/L (3.3-5.1); Sodium 142 mmol/L (135-145); Total Protein 8.0 g/dL (6.5-8.0); Triglycerides 37 mg/dL (<150)
[2025-03-08 11:33] LABS: Syphilis Screen Nonreactive (Nonreactive)
[2025-03-08 11:34] LABS: ~HepC Num1 15.95 S/CO (0.00-0.79); ~Hepatitis C Antibody Reactive (Nonreactive)
[2025-03-08 11:45] LABS: Reflex LDLD? No
[2025-03-09 19:58] LABS: HIV RNA PCR Qn Copies NOT DETECTED copies/mL (NOT DETECTED); HIV RNA PCR Qn Log Copies NOT DETECTED (NOT DETECTED)
[2025-03-10 17:18] LABS: HCV Log PCR <1.18 NOT DETECTED Log IU/mL (NOT DETECTED); HepC Viral Load <15 NOT DETECTED IU/mL (NOT DETECTED)
[2025-03-11 10:19] LABS: TS Negative Control Passed; TS Panel A 0; TS Panel B 1; TS Positive Control Passed; TSpotTB Negative (Negative)
[2025-03-15 22:18] LABS: Absolute CD3 Count 1598 cells/uL (840-3060); Absolute CD8 Count 640 cells/uL (180-1170); Percent CD3 Cells 78 % (57-85); Percent CD8 Cells 31 % (12-42)
== END 2025-03-08 09:32 | disposition home or self-care (01) ==
LOC: HO.LAB 09:31
PROVIDERS: PCP Nurse Practitioner Primary Care; Visit Provider Internal Medicine
DX: Z21 Asymptomatic human immunodeficiency virus [HIV] infection status (principal); Z11.3 Encounter for screening for infections with a predominantly sexual mode of transmission; Z11.59 Encounter for screening for other viral diseases; Z11.1 Encounter for screening for respiratory tuberculosis
CPT/HCPCS: 36415; 80053; 80061; 85025; 86359; 86360; 86481; 86780; 86803; 87522; 87536

== ENCOUNTER 2025-03-13 10:13 | Outpatient (REF) | payer MEDICAID, SELFPAY ==
[2025-03-13 12:26] LABS: Appearance Urine Clear; Glucose Urine UA Negative (Negative); PH 6.5 (5.0-9.0); Specific Gravity - Urine >= 1.030 (1.005-1.025); UMIC TRIGGER UA YES
[2025-03-14 15:08] LABS: HIV RNA PCR Qn Copies NOT DETECTED copies/mL (NOT DETECTED); HIV RNA PCR Qn Log Copies NOT DETECTED (NOT DETECTED)
[2025-03-16 04:23] LABS: TS Negative Control Passed; TS Panel A 0; TS Panel B 0; TS Positive Control Passed; TSpotTB Negative (Negative)
== END 2025-03-13 10:14 | disposition home or self-care (01) ==
LOC: HO.LAB 10:13
PROVIDERS: PCP Nurse Practitioner Primary Care; Visit Provider Internal Medicine
DX: F11.20 Opioid dependence, uncomplicated (principal); Z21 Asymptomatic human immunodeficiency virus [HIV] infection status; Z01.84 Encounter for antibody response examination; Z11.4 Encounter for screening for human immunodeficiency virus [HIV]
CPT/HCPCS: 81001; 86481; 86708; 87536